=== PATIENT | female | born 2000 | race Caucasian/White ===

== ENCOUNTER 2021-01-20 19:59 | Emergency (ER) | payer OTHER, SELFPAY ==
--- NOTE | ~2021-01-20 | CT_ITS ---
EXAMINATION: CT ABDOMEN AND PELVIS WITH CONTRAST CLINICAL INFORMATION: Right lower quadrant pain. COMPARISON: 01/12/2019. TECHNIQUE: Contiguous axial thin section helical images of the abdomen and pelvis were performed following the administration of 85 mL of intravenous Omnipaque 350. The data set was reformatted in the coronal and sagittal planes and reviewed on an independent workstation. DLP: 1066 mGy-cm. FINDINGS: The visualized lung bases are clear. The visualized portions of the heart are unremarkable. The liver is of normal size and attenuation without focal lesions nor intrahepatic biliary ductal dilation. A normal gallbladder is identified. There is no wall thickening or discernible pericholecystic fluid. The spleen, pancreas, adrenal glands are unremarkable. Both kidneys are of normal size and attenuation without hydronephrosis or nephrolithiasis. Following the administration of IV contrast, prompt symmetric nephrograms are displayed. There is trace free fluid within the right lower quadrant. There is neither mesenteric nor retroperitoneal lymphadenopathy. Normal unopacified loops of small and large bowel are identified. A normal appendix is identified. Since the prior exam, the IUD has been removed. There is no pelvic free fluid. The urinary bladder is unremarkable. There is neither pelvic nor inguinal lymphadenopathy. Bone windows: Neither sclerotic nor lytic bone lesions are identified. CT/CT abdomen pelvis w con IMPRESSION: Trace free fluid within the right lower quadrant of uncertain etiology. Of note, a normal appendix is identified. Automated exposure control (Care Dose) Adjustment of the mA and/or kv according to patient size (this includes techniques or standardized protocols for targeted exams where dose is matched to indication / reason for exam; i.e. extremities or head).
--- NOTE | ~2021-01-20 | US_ITS ---
EXAMINATION: ULTRASOUND PELVIC, COMPLETE CLINICAL INFORMATION: Right lower quadrant and right pelvic pain. COMPARISON: Same day abdominal and pelvic CT. TECHNIQUE: Transabdominal and transvaginal imaging was performed. Transvaginal imaging was performed for further evaluation of the endometrium and adnexa. FINDINGS: The uterus is of normal size and echogenicity measuring 10.4 x 4.2 x 6.1 cm. A regular homogeneous endometrium is identified measuring 0.5 cm. Both ovaries are of normal size and echogenicity. The right measures 2.6 x 1.6 x 1.4 cm for a volume of 3.1 mL. The left measures 4.2 x 1.5 x 2.9 cm for a volume of 9.6 mL. This measurement includes an approximately 18 mm cyst. There is a moderate amount of pelvic free fluid. US/US transvaginal IMPRESSION: Moderate amount of pelvic free fluid. No evidence for ovarian torsion.
--- NOTE | ~2021-01-20 | US_ITS ---
EXAMINATION: ULTRASOUND PELVIC, COMPLETE CLINICAL INFORMATION: Right lower quadrant and right pelvic pain. COMPARISON: Same day abdominal and pelvic CT. TECHNIQUE: Transabdominal and transvaginal imaging was performed. Transvaginal imaging was performed for further evaluation of the endometrium and adnexa. FINDINGS: The uterus is of normal size and echogenicity measuring 10.4 x 4.2 x 6.1 cm. A regular homogeneous endometrium is identified measuring 0.5 cm. Both ovaries are of normal size and echogenicity. The right measures 2.6 x 1.6 x 1.4 cm for a volume of 3.1 mL. The left measures 4.2 x 1.5 x 2.9 cm for a volume of 9.6 mL. This measurement includes an approximately 18 mm cyst. There is a moderate amount of pelvic free fluid. US/US pelvic complete IMPRESSION: Moderate amount of pelvic free fluid. No evidence for ovarian torsion.
[2021-01-20 20:22] VITALS: BP 154/71; PULSE 79; RESP 18; TEMP 36.5; O2SAT 99; BMI 40.7
[2021-01-20 22:21] VITALS: BP 131/76; PULSE 69; RESP 16; TEMP 36.4; O2SAT 98
[2021-01-20 22:44] LABS: Glucose Urine UA NEG (NEG); Leukocyte Esterase Urine 3+ (NEG); Nitrite Urine NEG (NEG); UACC Culture Trigger YES; Urine Blood TRACE (NEG); Urine Ketones NEG (NEG); Urine Protein NEG (NEG-TRACE)
[2021-01-20 22:51] LABS: Appearance Urine CLEAR; Color Urine STRAW
[2021-01-20 22:52] LABS: UPreg QC Valid YES; Urine Pregnancy NEGATIVE (NEGATIVE)
[2021-01-20 22:57] LABS: Bacteria Urine TRACE /LPF; RBC Urine 0-2 /HPF (0); Squamous Epithelial Cell Urine TRACE /LPF
--- NOTE | 2021-01-20 23:16 | ED_ITS ---
HPI - Abdominal Pain General Chief Complaint: Abdominal Pain Stated Complaint: ABD PAIN Time Seen by Provider: 01/20/21 22:44 Source: patient Mode of arrival: ambulatory Limitations: no limitations History of Present Illness HPI narrative: Patient comes emergency room complaining of right lower quadrant pain. Patient states that she has chronic bilateral lower quadrant pain, always cramping in sensation, but this pain feels different. Patient states that she has been seen by multiple OB GYNs regarding her chronic pain/cramping. She has tried multiple control options including IUDs, NuvaRing and OCPs. Patient denies nausea vomiting or diarrhea. No fever Related Data Previous Rx's Medication Instructions Recorded ibuprofen 600 mg PO Q8H PRN #14 tab 01/21/21 Allergies Allergy/AdvReac Type Severity Reaction Status Date / Time No Known Allergies Allergy Verified 01/20/21 20:26 Review of Systems Review of Systems Constitutional : No Weight loss, No Fever, No Chills, No Night Sweats, No Fatigue, No Malaise ENT/Mouth : No Hearing loss, No Ear Pain, No Nasal Congestion, No Sinus Pain, No Hoarseness, No sore throat, No Rhinorrhea, No Swallowing Difficulty Eyes: No Eye Pain, No Swelling, No Redness, No Foreign Body, No Discharge, No Vision Changes Cardiovascular : No Chest Pain, No SOB, No Dyspnea on Exertion, No Orthopnea, No Edema, No Palpitations Respiratory : No Cough, No Sputum, No Wheezing, No Smoke Exposure, No Dyspnea Gastrointestinal : No Nausea, No Vomiting, No Diarrhea, No Constipation, complaining of right lower quadrant pain acute on chronic, chronic left lower quadrant pain. No Hematochezia, No Melena Genitourinary : no irregular bleeding, No Dysuria, No Urinary Frequency, No Hematuria, No Urinary Incontinence, No Urgency, No Flank Pain, No Urinary Flow Changes, No Hesitancy Musculoskeletal : No joint pain, No Myalgias, No Joint Swelling Skin : No Skin Lesions, No rash Neuro : No Weakness, No Numbness, No Paresthesias, No Loss of Consciousness, No Dizziness, No Headache Psych : No Anxiety/Panic, No Depression, No SI/HI/AH/VH, No Social Issues, Heme/Lymph: No Bruising, No Bleeding,No Lymphadenopathy Endocrine : No Polyuria, No Polydipsia, No Temperature Intolerance Physical Exam Vital Signs: Vital Signs: Last Vital Signs Temp 97.8 F 01/21/21 00:32 Pulse 77 01/21/21 00:32 Resp 17 01/21/21 00:32 BP 131/72 01/21/21 00:32 Pulse Ox 98 01/21/21 00:32 Body Mass Index 40.7 Appearance: Alert. Oriented X3. No acute distress. Eyes: Pupils equal, round and reactive to light. ENT: Pharynx normal. Neck: Normal inspection. Neck supple. No lymph nodes noted. No crepitus CVS: Normal heart rate and rhythm. Pulses normal. Normal S1 and S2 Respiratory: No respiratory distress. Breath sounds normal. No Wheezing. No rales Abdomen: Soft, tenderness to palpation over the right lower quadrant more than on the left lower quadrant, no guarding, no rebound, No rigidity. No distention. Skin: Skin warm and dry. Normal skin color. Normal skin turgor. Extremities: No lower extremity edema. No lower extremity edema. No Lacerations. No Rash Neuro: Oriented X 3. No motor deficit. No sensory deficit. Moving all ex termities. No slurred speech. Course Course Course Narrative: I discussed the CT and ultrasound with the patient, patient does have free fluid in the abdomen, no signs of ovarian rupture or perforation. At this time, patient is feeling better, reading a book in her room, I discussed with the patient to follow-up with OBGYN, patient would like to have a referral to [facility] I discussed with the patient that the right lower quadrant pain could be a sign of early appendicitis, at this time the ultrasound, CT scan and labs do not show any acute GB that would indicate appendicitis. However, if the pain worsens, patient instructed to return to the emergency room. MDM - Abdominal Pain Lab Data Result diagrams: 01/20/21 23:30 01/20/21 23:30 Labs: Lab Results 01/20/21 01/20/21 01/20/21 Range/Units 22:32 22:32 23:30 WBC 10.6 (4.8-10.8) X10*3/uL RBC 5.28 (4.20-5.50) X10*6/uL Hgb 13.6 (12.0-16.0) g/dl Hct 42.5 (37-47) % MCV 80.5 (80-98) fL MCH 25.8 L (27.0-33.0) pg MCHC 32.0 (31.0-35.0) g/dl RDW 13.2 (11.0-16.0) % Plt Count 358 (160-400) X10*3/uL MPV 9.7 (9.4-12.3) fL Immature Gran % (Auto) 0.2 (0.0-0.4) % Neut % (Auto) 55.2 (45-73) % Lymph % (Auto) 37.3 (20-40) % [place] % (Auto) 5.4 (2-11) % Eos % (Auto) 1.6 (0-4) % Baso % (Auto) 0.3 (0-2) % Lymph # (Auto) 4.0 (1.2-4.9) X10*3/uL [place] # (Auto) 0.6 (0.1-1.2) X10*3/uL Eos # (Auto) 0.2 (0.0-0.4) X10*3/uL Baso # (Auto) 0.0 (0.0-0.2) X10*3/uL Abs Immat Gran (auto) 0.02 (0.00-0.03) X10*3/uL Absolute Neuts (auto) 5.9 (2.0-8.3) X10*3/uL Absolute Nucleated RBC 0.000 (0.0-0.012) X10*3/uL Nucleated RBC % (auto) 0.0 (0.0-0.2) /100WBC Sodium (135-145) mmol/L Potassium (3.3-5.1) mmol/L Chloride (96-108) mmol/L Carbon Dioxide (22-29) mmol/L Anion Gap (12-20) BUN (9-16) mg/dL Creatinine (0.5-1.4) mg/dL Estim Creat Clear Calc Estimated GFR Random Glucose (60-115) mg/dL Calcium (8.4-10.2) mg/dL Total Bilirubin (0.0-1.0) mg/dL Direct Bilirubin (0.0-0.5) mg/dL AST (5-31) U/L ALT (0-31) U/L Alkaline Phosphatase (39-117) U/L Total Protein (6.5-8.0) g/dL Albumin (3.5-5.0) g/dL Urine Color STRAW Urine Appearance CLEAR Urine pH 8.0 (5.0-8.0) Ur Specific [place] 1.010 (1.005-1.025) Urine Protein NEG (NEG-TRACE) MG/DL Urine Glucose (UA) NEG (NEG) MG/DL Urine Ketones NEG (NEG) MG/DL Urine Blood TRACE (NEG) Urine Nitrite NEG (NEG) Ur Leukocyte Esterase 3+ H (NEG) Urine RBC 0-2 (0) /HPF Urine WBC 5-9 H (0-4) /HPF Ur Squamous Epith Cells TRACE /LPF Urine Bacteria TRACE /LPF Urine Test NEGATIVE (NEGATIVE) 01/20/21 Range/Units 23:30 WBC (4.8-10.8) X10*3/uL RBC (4.20-5.50) X10*6/uL Hgb (12.0-16.0) g/dl Hct (37-47) % MCV (80-98) fL MCH (27.0-33.0) pg MCHC (31.0-35.0) g/dl RDW (11.0-16.0) % Plt Count (160-400) X10*3/uL MPV (9.4-12.3) fL Immature Gran % (Auto) (0.0-0.4) % Neut % (Auto) (45-73) % Lymph % (Auto) (20-40) % [place] % (Auto) (2-11) % Eos % (Auto) (0-4) % Baso % (Auto) (0-2) % Lymph # (Auto) (1.2-4.9) X10*3/uL [place] # (Auto) (0.1-1.2) X10*3/uL Eos # (Auto) (0.0-0.4) X10*3/uL Baso # (Auto) (0.0-0.2) X10*3/uL Abs Immat Gran (auto) (0.00-0.03) X10*3/uL Absolute Neuts (auto) (2.0-8.3) X10*3/uL Absolute Nucleated RBC (0.0-0.012) X10*3/uL Nucleated RBC % (auto) (0.0-0.2) /100WBC Sodium 140 (135-145) mmol/L Potassium 4.0 (3.3-5.1) mmol/L Chloride 104 (96-108) mmol/L Carbon Dioxide 24 (22-29) mmol/L Anion Gap 16 (12-20) BUN 8 L (9-16) mg/dL Creatinine 0.65 (0.5-1.4) mg/dL Estim Creat Clear Calc 159.5 Estimated GFR > 60 Random Glucose 81 (60-115) mg/dL Calcium 9.3 (8.4-10.2) mg/dL Total Bilirubin 0.5 (0.0-1.0) mg/dL Direct Bilirubin < 0.2 (0.0-0.5) mg/dL AST 18 (5-31) U/L ALT 19 (0-31) U/L Alkaline Phosphatase 97 (39-117) U/L Total Protein 8.1 H (6.5-8.0) g/dL Albumin 4.4 (3.5-5.0) g/dL Urine Color Urine Appearance Urine pH (5.0-8.0) Ur Specific [place] (1.005-1.025) Urine Protein (NEG-TRACE) MG/DL Urine Glucose (UA) (NEG) MG/DL Urine Ketones (NEG) MG/DL Urine Blood (NEG) Urine Nitrite (NEG) Ur Leukocyte Esterase (NEG) Urine RBC (0) /HPF Urine WBC (0-4) /HPF Ur Squamous Epith Cells /LPF Urine Bacteria /LPF Urine Test (NEGATIVE) Imaging Data CT scan - abdomen: Radiologist's impression: FINDINGS: The visualized lung bases are clear. The visualized portions of the heart are unremarkable. The liver is of normal size and attenuation without focal lesions nor intrahepatic biliary ductal dilation. A normal gallbladder is identified. There is no wall thickening or discernible pericholecystic fluid. The spleen, pancreas, adrenal glands are unremarkable. Both kidneys are of normal size and attenuation without hydronephrosis or nephrolithiasis. Following the administration of IV contrast, prompt symmetric nephrograms are displayed. There is trace free fluid within the right lower quadrant. There is neither mesenteric nor retroperitoneal lymphadenopathy. Normal unopacified loops of small and large bowel are identified. A normal appendix is identified. Since the prior exam, the IUD has been removed. There is no pelvic free fluid. The urinary bladder is unremarkable. There is neither pelvic nor inguinal lymphadenopathy. Bone windows: Neither sclerotic nor lytic bone lesions are identified. CT/CT abdomen pelvis w con IMPRESSION: Trace free fluid within the right lower quadrant of uncertain etiology. Of note, a normal appendix is identified. Automated exposure control (Care Dose) Adjustment of the mA and/or kv according to patient size (this includes techniques or standardized protocols for targeted exams where dose is matched to indication / reason for exam; i.e. extremities or head). US - abdomen: Radiologist's impression: FINDINGS: The uterus is of normal size and echogenicity measuring 10.4 x 4.2 x 6.1 cm. A regular homogeneous endometrium is identified measuring 0.5 cm. Both ovaries are of normal size and echogenicity. The right measures 2.6 x 1.6 x 1.4 cm for a volume of 3.1 mL. The left measures 4.2 x 1.5 x 2.9 cm for a volume of 9.6 mL. This measurement includes an approximately 18 mm cyst. There is a moderate amount of pelvic free fluid. US/US pelvic complete IMPRESSION: Moderate amount of pelvic free fluid. No evidence for ovarian torsion. Discharge Plan Discharge Clinical Impression: Abdominal pain Qualifiers: Abdominal location: unspecified location Qualified Code(s): R10.9 - Unspecified abdominal pain Patient Disposition: Home, Self-Care Instructions: Abdominal Pain (ED) Additional Instructions: If you have any worsening pain, any symptoms, please return to the emergency room. Please follow-up with your primary care physician tomorrow. If you have any worsening or new symptoms, please return to the emergency room or call 911 Prescriptions: New ibuprofen 600 mg tablet 600 mg PO Q8H PRN (Reason: pain) Qty: 14 RF: 0 Referrals: Bari Pa MD [Physician] - 2 days [facility] Past Medical History Medical History Asthma Bipolar disorder Insomnia Social History Social History Smoking Status: Never smoker Use of substances other than those prescribed or required for medical reasons: Yes Substance Use Type: Marijuana Advance Directives: No Advance Directives Information Provided: No
[2021-01-20 23:36] LABS: MANUAL DIFF FLAG NO
[2021-01-20 23:37] LABS: Basophils Percent Auto 0.3 % (0-2); Eosinophils Absolute Auto 0.2 X10*3/uL (0.0-0.4); Eosinophils Percent Auto 1.6 % (0-4); Hematocrit 42.5 % (37-47); Hemoglobin 13.6 g/dl (12.0-16.0); Imm Gran Abs Auto 0.02 X10*3/uL (0.00-0.03); Imm Gran Pct Auto 0.2 % (0.0-0.4); Lymphocytes Percent Auto 37.3 % (20-40); Mean Corpuscular Hemoglobin 25.8 pg (27.0-33.0); Mean Corpuscular Volume 80.5 fL (80-98); Mean Platelet Volume 9.7 fL (9.4-12.3); Monocytes Absolute Auto 0.6 X10*3/uL (0.1-1.2); Monocytes Percent Auto 5.4 % (2-11); Neutrophils Absolute Auto 5.9 X10*3/uL (2.0-8.3); Neutrophils Percent Auto 55.2 % (45-73); Platelet Count 358 X10*3/uL (160-400); Red Blood Count 5.28 X10*6/uL (4.20-5.50); Red Cell Distribution Width 13.2 % (11.0-16.0); White Blood Count 10.6 X10*3/uL (4.8-10.8)
--- NOTE | 2021-01-20 23:38 | PC.NURSE ---
PT EVALED BY DR LI. IV STARTED. LABS DRAWN AND SENT. PT WAITING FOR CT SCAN AND RESULTS.
[2021-01-20 23:59] LABS: Alanine Aminotransferase 19 U/L (0-31); Albumin Level 4.4 g/dL (3.5-5.0); Alkaline Phosphatase 97 U/L (39-117); Anion Gap 16 (12-20); Aspartate Amino Transferase 18 U/L (5-31); Bilirubin Direct < 0.2 mg/dL (0.0-0.5); Bilirubin Total 0.5 mg/dL (0.0-1.0); Blood Urea Nitrogen 8 mg/dL (9-16); Calcium 9.3 mg/dL (8.4-10.2); Carbon Dioxide 24 mmol/L (22-29); Chloride 104 mmol/L (96-108); Creatinine Clr Calc Pharmacy 159.5; Estimated Glomerular Filt Rate > 60; Glucose Random 81 mg/dL (60-115); Sodium 140 mmol/L (135-145); Total Protein 8.1 g/dL (6.5-8.0)
[2021-01-21 00:32] VITALS: BP 131/72; PULSE 77; RESP 17; TEMP 36.6; O2SAT 98
--- NOTE | 2021-01-21 00:57 | PC.NURSE ---
REPORT GIVEN TO CAPRI LIN. PT HAS CALL ALDRICH IN REACH. NO DISTRESS. SITTING ON BED READING A BOOK.
== END 2021-01-21 03:56 | disposition home or self-care (01) ==
PROVIDERS: Emergency Provider Emergency Medicine; PCP Pediatrics
DX: R10.31 Right lower quadrant pain (principal); F12.90 Cannabis use, unspecified, uncomplicated; Z79.899 Other long term (current) drug therapy
CPT/HCPCS: 36415; 74177; 76830; 76856; 80048; 80076; 81001; 81003; 81025; 85025; 87086; 96360; 99284; Q9967

== ENCOUNTER 2021-11-13 16:17 | Outpatient (REF) | payer OTHER, SELFPAY ==
--- NOTE | ~2021-11-13 | CT_ITS ---
EXAMINATION: CT HEAD WITHOUT CONTRAST CLINICAL INFORMATION: Pseudotumor cerebri. COMPARISON: None TECHNIQUE: Contiguous axial imaging was performed from the skull base to vertex without intravenous administration of contrast. This CT examination was performed using dose optimization techniques as appropriate, variously including the following: Automated exposure control. Adjustment of mA and/or kV according to patient size (this includes techniques or standardized protocols for targeted exams where dose is matched to indication/reason for exam; i.e. extremities or head). Use of iterative reconstruction technique. DLP: 782 mGy-cm FINDINGS: There is no evidence of acute intracranial hemorrhage or territorial infarction. No abnormal mass effect or midline shift is seen. [place] to white matter differentiation is well preserved. No extra-axial fluid collections are identified. The ventricles are normal in size. There is no abnormal attenuation within the brain parenchyma. The osseous structures and soft tissues are normal. There is diffuse mucoperiosteal thickening of right maxillary, anterior ethmoid and minimal right maxillary sinuses. The mastoid sinuses are clear. CT/CT head/brain wo con IMPRESSION: No acute intracranial process seen. Moderate inflammatory changes right frontal, right ethmoid and minimal right maxillary sinuses.
== END 2021-11-13 16:18 | disposition home or self-care (01) ==
LOC: HO.CT 16:17
PROVIDERS: Visit Provider Psychiatry & Neurology Neurology
DX: G93.2 Benign intracranial hypertension (principal)
CPT/HCPCS: 70450

== ENCOUNTER → 2021-11-25 09:35 | Day surgery (SDC) | payer OTHER, SELFPAY ==
--- NOTE | ~2021-11-25 | FL_ITS ---
EXAMINATION: XR LUMBAR PUNCTURE CLINICAL INFORMATION: Pseudotumor cerebri. Headaches 04/10. COMPARISON: None TECHNIQUE: Following explaining fluoroscopy-guided lumbar puncture procedure, benefits and risk, a written consent was obtained. Patient was placed prone on fluoroscopy table and low back area was cleaned and draped in the usual sterile manner. 1% lidocaine was injected and left paramidline region overlying the L3-L4 disc level. A 22-gauge 6 inch needle was then advanced from the skin into the thecal sac. After observing fluid return, patient was quickly placed in the left lateral decubitus view and opening CSF pressure was obtained. Subsequently, fluid was collected in 4 test tubes. Postprocedure stylet was reintroduced and needle withdrawn. Complete hemostasis achieved at puncture site. Sterile Band-Aid applied postprocedure. Patient tolerated the procedure extremely well. FINDINGS: On several images of the lumbar spine obtained, the needle is positioned intrathecally at the L3-L4 disc level. The opening CSF pressure measured 18 cm of water. Approximately 13 mL of clear CSF fluid was collected in test tube. FLUOROSCOPY TIME: 1.0 minutes DOSE AREA PRODUCT: 9.992 uGy-m2 (microgray-meter squared) FL/FL guided lumbar puncture LP IMPRESSION: Successful fluoroscopy-guided L3-L4 lumbar puncture performed.
[2021-11-25 09:58] VITALS: BMI 42.5
[2021-11-25 10:12] LABS: MANUAL DIFF FLAG NO
[2021-11-25 10:14] LABS: Basophils Percent Auto 0.4 % (0-2); Eosinophils Absolute Auto 0.3 X10*3/uL (0.0-0.4); Hematocrit 39.1 % (37.0-47.0); Hemoglobin 12.8 g/dl (12.0-16.0); Imm Gran Abs Auto 0.02 X10*3/uL (0.00-0.03); Imm Gran Pct Auto 0.3 % (0.0-0.4); Lymphocytes Absolute Auto 2.9 X10*3/uL (1.2-4.9); Lymphocytes Percent Auto 41.2 % (20-40); Mean Corpuscular HGB Conc 32.7 g/dl (31.0-35.0); Mean Corpuscular Hemoglobin 26.8 pg (27.0-33.0); Mean Platelet Volume 9.6 fL (9.4-12.3); Monocytes Absolute Auto 0.4 X10*3/uL (0.1-1.2); Monocytes Percent Auto 5.4 % (2-11); Neutrophils Absolute Auto 3.5 x10*3/uL (2.0-8.3); Neutrophils Percent Auto 48.7 % (45-73); Platelet Count 303 X10*3/uL (160-400); Red Blood Count 4.77 X10*6/uL (4.20-5.50); Red Cell Distribution Width 12.8 % (11.0-16.0); White Blood Count 7.1 X10*3/uL (4.8-10.8)
[2021-11-25 10:19] LABS: UPreg QC Valid YES; Urine Pregnancy NEGATIVE (NEGATIVE)
[2021-11-25 10:20] LABS: INTERNATIONAL NORM RATIO 1.1 (0.9-1.1); Prothrombin Time 12.4 SEC (9.9-13.0)
[2021-11-25 10:22] LABS: Partial Thromboplastin Time 39.4 SEC (24.1-38.0)
[2021-11-25 12:25] VITALS: BP 95/64; PULSE 66; RESP 18; O2SAT 96
[2021-11-25 13:17] LABS: Glucose CSF 55 mg/dL; Total Protein CSF 25.7 mg/dL (15-45)
[2021-11-25 13:28] VITALS: BP 103/60; PULSE 72; RESP 18; O2SAT 97
[2021-11-25 13:47] LABS: CSF Appearance Clear, Colorless; CSF Tube # 2
[2021-11-25 13:57] LABS: Appearance CSF CLEAR; CSF Tube # 4; Color CSF COLORLESS; White Blood Cell CSF 2 MM*3
[2021-11-25 13:58] LABS: Lymphocytes CSF 100 %; Red Blood Cell CSF 0 MM*3
[2021-11-25 14:20] VITALS: BP 92/57; PULSE 75; RESP 18; O2SAT 100
[2021-11-25 15:09] VITALS: BP 99/51; PULSE 76; RESP 18; TEMP 36.2; O2SAT 98
== END | disposition home or self-care (01) ==
PROVIDERS: Psychiatry & Neurology Neurology; Radiology Diagnostic Radiology; Visit Provider Radiology Diagnostic Radiology
PROC: 009U3ZZ Drainage of Spinal Canal, Percutaneous Approach (ICD-10-PCS; CPT 62270; principal; 2021-11-25 11:00)
DX: G93.2 Benign intracranial hypertension (principal); R42 Dizziness and giddiness; G40.89 Other seizures; F31.9 Bipolar disorder, unspecified; F43.10 Post-traumatic stress disorder, unspecified; G47.00 Insomnia, unspecified; J45.909 Unspecified asthma, uncomplicated; Z79.899 Other long term (current) drug therapy
CPT/HCPCS: 36415; 62328; 81025; 82945; 84157; 85025; 85610; 85730; 87015; 87070; 87205; 89051

== ENCOUNTER 2022-01-29 12:59 | Emergency (ER) | payer OTHER, SELFPAY ==
[2022-01-29 13:08] VITALS: BP 119/65; PULSE 88; O2SAT 98
[2022-01-29 14:11] VITALS: BP 109/67; PULSE 81; RESP 18; TEMP 36.5; O2SAT 98; BMI 45.7
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
[2022-01-29] MEDS: Acetaminophen 325 MG TABLET 975 MG PO (16:12)
== END 2022-01-29 16:19 | disposition home or self-care (01) ==
PROVIDERS: Emergency Provider Emergency Medicine; PCP Pediatrics
DX: S00.03XA Contusion of scalp, initial encounter (principal); W22.8XXA Striking against or struck by other objects, initial encounter; Y93.89 Activity, other specified; Y92.838 Other recreation area as the place of occurrence of the external cause; Y99.9 Unspecified external cause status
CPT/HCPCS: 99283; 99284

== ENCOUNTER 2022-02-25 10:00 | Emergency (ER) | payer OTHER, SELFPAY ==
--- NOTE | ~2022-02-25 | XR_ITS ---
EXAMINATION: XR CHEST CLINICAL INFORMATION: Wheezing, shortness of breath. COMPARISON: None TECHNIQUE: Frontal view of the chest was obtained. FINDINGS: No significant abnormality is noted involving the heart, lungs, mediastinum, bony thorax or soft tissues. XR/XR chest 1V IMPRESSION: No acute cardiopulmonary process.
[2022-02-25 10:05] VITALS: BP 148/84; PULSE 88; O2SAT 95
--- NOTE | 2022-02-25 10:56 | ED_ITS ---
HPI - Asthma General Chief Complaint: Asthma Stated Complaint: ASTHMA,DIFF BREATHING,99% S/P UNDRAFT PER EMS Time Seen by Provider: 02/25/22 10:46 Source: patient, family and EMS Mode of arrival: EMS Limitations: no limitations History of Present Illness HPI Narrative: 21 y/o female with history of seasonal allergies, asthma, pseudoseizures, concussion who presents to the ER with 5 days of cough, wheezing, and SOB. She reports starting with a dry scratchy throat 5 days ago and woke up with a fever the next day. She has been having yellow phlegm and nasal congestion. She reports minimal relief with her p.r.n. albuterol inhaler and nebulizer treatments. She had a limited amount of nebulizer treatments at home so was using them sparingly. She woke up this morning and went to go use her neb but but did not have any treatments left so she called 911 because she felt very short of breath. She reports improvements since being given an updraft by EMS. She reports taking to COVID test at home that were negative. She has had all 3 vaccinations and she is vaccinated for the flu as well. MD complaint: asthma attack and shortness of breath Onset (ago): day(s) (5) Severity: moderate Context: recent URI Associated symptoms: productive cough and fever Asthma History: childhood onset Treatments Prior to Arrival: inhaled bronchodilator Related Data Current Asthma Therapy: inhaled bronchodilator Previous Rx's Medication Instructions Recorded ibuprofen 600 mg tablet 600 mg PO Q8H PRN #14 tab 01/21/21 ibuprofen 600 mg tablet 600 mg PO Q6H PRN #14 tab 01/29/22 albuterol sulfate 0.63 mg/3 mL 0.63 mg (3 mL) INHALATION QID PRN 02/25/22 solution for nebulization #75 ml azithromycin 250 mg tablet See Rx Instructions .ROUTE 02/25/22 (Zithromax Z-Chriss) .COMPLEX #6 tab hydrocodone-homatropine 5 mg-1.5 5 ml PO Q6H PRN #60 ml 02/25/22 mg/5 mL (5 mL) oral syrup (Hycodan) prednisone 20 mg tablet 40 mg PO DAILY #10 tab 02/25/22 Allergies Allergy/AdvReac Type Severity Reaction Status Date / Time No Known Allergies Allergy Verified 01/29/22 14:10 Review of Systems Review of Systems: Constitutional: + Fever, No Chills ENT/Mouth: No sore throat, No Rhinorrhea, No Swallowing Difficulty Eyes: No Eye Pain, No Swelling, No Redness Cardiovascular: No Chest Pain, + SOB, No Orthopnea, No Edema Respiratory: + Cough, + Sputum, + Wheezing, + dyspnea Gastrointestinal: No Nausea, No Vomiting, No Diarrhea, No abdominal Pain Genitourinary: No Dysuria, No Urinary Frequency, No Hematuria Musculoskeletal: No joint pain, No Myalgias Skin: No Skin Lesions, No rash Neuro: No Weakness, No Numbness, No Dizziness, + Headache Psych: No Anxiety/Panic, No Depression Heme/Lymph: No Bruising, No Lymphadenopathy Endocrine: No Polyuria, No Polydipsia [facility] Past Medical History Medical History (Updated 02/25/22 @ 13:36 by KEVAN Pinzon) Asthma Bipolar disorder Eating disorder Insomnia Social History Social History Substance Use Type: Marijuana Advance Directives: No Advance Directives Information Provided: No Patient : No Physical Exam Vital Signs: Vital Signs: Last Vital Signs Temp 98.9 F 02/25/22 11:30 Pulse 85 02/25/22 12:53 Resp 12 02/25/22 12:53 BP 136/66 02/25/22 12:53 Pulse Ox 94 02/25/22 12:53 BMI result Body Mass Index 42.5 Appearance: Alert. Oriented X3. No acute distress. Eyes: Pupils equal, round and reactive to light. ENT: Pharynx normal. Neck: Normal inspection. Neck supple. CVS: Normal heart rate and rhythm. Pulses normal. Respiratory: No respiratory distress. Coarse throughout with end expiratory wheezes throughout. Abdomen: Soft and nontender. +BS x4 Skin: Skin warm and dry. Normal skin color. Normal skin turgor. No rashes. Extremities: No lower extremity edema. No calf tenderness. Neuro: Oriented X 3. No motor deficit. No sensory deficit. Course Course Course Narrative: 21-year-old female with history of asthma, seasonal allergies, pseudoseizures, recent concussion who presents to the ER with 5 days of URI symptoms and wheezing. SpO2 for EMS was 99% after updraft. SpO2 here is 95% with coarse lung sounds and end-expiratory wheezes on examination. She is in no complete sentences. Will get chest x-ray, COVID swab, influenza swab. Will give an hour long nebulizer treatment and prednisone. Will reassess. Reevaluation(s) Reevaluation #1: Wheezing improved but remains coarse. Not hypoxic or in respiratory distress. CXR reviewed and no lobar PNA. She is negative for COVID-19 and influenza. At this time she is stable for discharge home with plan to refill her albuterol nebs, advised to take Q 4 while ill. Will send home with 5 days of prednisone as well, antitussive, Z-Chriss. She will follow-up with her primary care doctor or come back to the ER if symptoms worsen. Stable for DC. MDM - Asthma Lab Data Labs: Lab Results 02/25/22 02/25/22 Range/Units 12:55 12:55 COVID-19 (HARPREET) Negative (Negative) COVID-19 Clin Com See Note Influenza Type A (APURVA) Negative (Negative) Influenza Type B (APURVA) Negative (Negative) Influenza A & B Note See Note Critical Care Time Critical Care Time Critical Care Time: Yes Total Critical Care Time: 35 Attestation: I have personally provided critical care time exclusive of time spent on separately billable procedures. Time includes review of lab data, radiology results, frequent bedside reassessments, and monitoring for potential decompensation. Intervention performed as documented. Discharge Plan Discharge Clinical Impression: Asthma with acute exacerbation, Acute viral syndrome Patient Disposition: Home, Self-Care Instructions: Asthma (DC), Viral Syndrome (ED) Additional Instructions: You are negative for COVID and Influenza Take the prescribed medications as directed Start the prednisone tomorrow, you were given the 1st dose today in the ER Rest. Drink plenty of fluids. If you develop new or worsening symptoms call 911 or come back to the ER for further evaluation. Prescriptions: New prednisone 20 mg tablet 40 mg PO DAILY Qty: 10 0RF azithromycin [Zithromax Z-Chriss] 250 mg tablet See Rx Instructions .ROUTE .COMPLEX Qty: 6 0RF Rx Instructions: take 500 mg today (day 1), then 250 mg for 4 days (days 2-5) hydrocodone-homatropine [Hycodan] 5-1.5 mg/5 mL (5 mL) syrup 5 ml PO Q6H PRN (Reason: cough) Qty: 60 0RF albuterol sulfate 0.63 mg/3 mL solution for nebulization 0.63 mg inhalation QID PRN (Reason: shortness of breath or wheezing) Qty: 75 0RF No Action ibuprofen 600 mg tablet 600 mg PO Q8H PRN (Reason: pain) Qty: 14 0RF ibuprofen 600 mg tablet 600 mg PO Q6H PRN (Reason: pain) Qty: 14 0RF Stand Alone Forms: Work/School Release
[2022-02-25 11:17] VITALS: PULSE 74; RESP 20; O2SAT 96
[2022-02-25] MEDS: Albuterol Sulfate (0.083%) 2.5 MG/3 ML VIAL.NEB 10 MG INHALE (11:17)
[2022-02-25 11:30] VITALS: BP 123/69; PULSE 75; RESP 20; TEMP 37.2; O2SAT 94; BMI 42.5
[2022-02-25] MEDS: predniSONE 20 MG TABLET 60 MG PO (11:42)
[2022-02-25 12:53] VITALS: BP 136/66; PULSE 85; RESP 12; O2SAT 94
--- NOTE | 2022-02-25 13:01 | PC.NURSE ---
Patient is alert and oriented x3, ther mother is at bedside. Patient reports pain in b/l chest from coughing-05/10 at present. Tylenol offered to patient for pain management-patient declined/ O2 Sat 92-93on RA-patient reports mild dyspnea-supplemental O2 applied at 1 LPM-O2 Sat 95%-patient reports dyspnea resolved. Provider updated.
[2022-02-25 13:27] LABS: IDNOW Serial# 16C4AD1C; Influenza A Negative (Negative); Influenza B2 Negative (Negative)
[2022-02-25 13:29] LABS: COVID-19 Test Negative (Negative)
== END 2022-02-25 13:52 | disposition home or self-care (01) ==
PROVIDERS: Physician Assistant; Emergency Provider Emergency Medicine
DX: J45.901 Unspecified asthma with (acute) exacerbation (principal); B34.9 Viral infection, unspecified; Z20.822 Contact with and (suspected) exposure to COVID-19
CPT/HCPCS: 71045; 87502; 87635; 94640; 94644; 99284; 99291

== ENCOUNTER 2022-02-25 17:47 | Emergency (ER) | payer OTHER, SELFPAY ==
[2022-02-25 18:04] VITALS: BP 130/86; BP 147/81; PULSE 85; PULSE 95; RESP 18; TEMP 36.8; O2SAT 95; BMI 43.4
== END 2022-02-25 20:45 | disposition left against medical advice (07) ==
PROVIDERS: Emergency Provider Emergency Medicine; PCP Pediatrics
DX: R55 Syncope and collapse (principal)
CPT/HCPCS: 99281; 99282

== ENCOUNTER 2022-08-30 20:22 | Emergency (ER) | payer OTHER, SELFPAY ==
[2022-08-30 21:06] VITALS: BP 122/70; BP 143/79; PULSE 78; PULSE 80; RESP 18; TEMP 37.1; O2SAT 99; BMI 38.9
[2022-08-30 21:55] VITALS: BP 133/97; PULSE 83; RESP 20; TEMP 36.7; O2SAT 100
--- NOTE | 2022-08-30 21:56 | PC.NURSE ---
Pt called for RN in the waiting room because she felt like she was about to have seizure. Pt then exhibited seizure like activity while this RN was rechecking vitals. Pt able to follow directions to stand and pivot to wheelchair immediately after seizure activity. Pt then reported in triage that she did not remember how or why she came to the hospital.
--- NOTE | 2022-08-30 22:02 | PC.NURSE ---
Pt is currently in triage; reassessing vitals, drawing labs, and consulting with charge nurse for plan with the pt.
[2022-08-30 22:14] LABS: MANUAL DIFF FLAG NO
[2022-08-30 22:15] LABS: Basophils Percent Auto 0.3 % (0-2); Eosinophils Absolute Auto 0.2 X10*3/uL (0.0-0.4); Eosinophils Percent Auto 2.1 % (0-4); Hemoglobin 13.8 g/dl (12.0-16.0); Imm Gran Abs Auto 0.02 X10*3/uL (0.00-0.03); Imm Gran Pct Auto 0.2 % (0.0-0.4); Lymphocytes Absolute Auto 3.3 X10*3/uL (1.2-4.9); Lymphocytes Percent Auto 32.3 % (20-40); Mean Corpuscular HGB Conc 32.9 g/dl (31.0-35.0); Mean Corpuscular Hemoglobin 26.1 pg (27.0-33.0); Mean Corpuscular Volume 79.5 fL (80.0-98.0); Mean Platelet Volume 9.4 fL (9.4-12.3); Monocytes Absolute Auto 0.8 X10*3/uL (0.1-1.2); Monocytes Percent Auto 7.5 % (2-11); Neutrophils Absolute Auto 5.8 x10*3/uL (2.0-8.3); Neutrophils Percent Auto 57.6 % (45-73); Platelet Count 345 X10*3/uL (160-400); Red Blood Count 5.28 X10*6/uL (4.20-5.50); Red Cell Distribution Width 13.2 % (11.0-16.0); White Blood Count 10.1 X10*3/uL (4.8-10.8)
[2022-08-30 22:34] LABS: Alanine Aminotransferase 14 U/L (0-31); Albumin Level 4.7 g/dL (3.5-5.0); Alkaline Phosphatase 106 U/L (39-117); Anion Gap 17 (12-20); Aspartate Amino Transferase 14 U/L (5-31); Bilirubin Direct < 0.2 mg/dL (0.0-0.5); Bilirubin Total 0.3 mg/dL (0.0-1.0); Blood Urea Nitrogen 7 mg/dL (9-16); Calcium 9.4 mg/dL (8.4-10.2); Carbon Dioxide 22 mmol/L (22-29); Chloride 104 mmol/L (96-108); Estimated Glomerular Filt Rate > 60; Glucose Random 97 mg/dL (60-115); Lipase 62 U/L (8-78); Potassium 3.8 mmol/L (3.3-5.1); Sodium 139 mmol/L (135-145); Total Protein 8.2 g/dL (6.5-8.0)
--- NOTE | 2022-08-31 00:20 | PC.NURSE ---
Pt complaining of nausea. Has not vomited since this morning.
--- NOTE | 2022-08-31 00:24 | PC.NURSE ---
Pt now reported that she feels less nauseous, but she has not eaten today so that could be why her stomach is bothering her. Pt given fredrick lynne and saltines at this time. Jailene held.
--- NOTE | 2022-08-31 04:26 | ED_ITS ---
HPI - General Adult General Chief complaint: Nausea/Vomiting/Diarrhea Stated complaint: dizziness Time Seen by Provider: 08/31/22 03:22 Source: patient Mode of arrival: ambulatory Limitations: no limitations History of Present Illness HPI narrative: 22-year-old female who presents emergency department for evaluation of nasal congestion and sinus pain x3 days. She is currently complaining of a congested stuffy nose. She states she is having sharp pressure-like pain and she points to her frontal sinuses and to her nasal bridge when asked to localize this discomfort. The pain is a constant pain which is 8/10. She has also had rhinorrhea. She denied fever or chills. She denied cough, chest pain shortness of breath or dyspnea on exertion . She states that she has been taking DayQuil with no relief for symptoms. The patient states Related Data Previous Rx's Medication Instructions Recorded ibuprofen 600 mg tablet 600 mg PO Q8H PRN pain #14 tabs 01/21/21 ibuprofen 600 mg tablet 600 mg PO Q6H PRN pain #14 tabs 01/29/22 albuterol sulfate 0.63 mg/3 mL 0.63 mg (3 mL) inhalation QID PRN 02/25/22 solution for nebulization shortness of breath or wheezing #75 mL azithromycin 250 mg tablet See Rx Instructions PO .COMPLEX #6 02/25/22 (Zithromax Z-Chriss) tabs hydrocodone-homatropine 5 mg-1.5 5 ml PO Q6H PRN cough #60 mL 02/25/22 mg/5 mL (5 mL) oral syrup (Hycodan) prednisone 20 mg tablet 40 mg PO DAILY #10 tabs 02/25/22 fluticasone propionate 50 2 spray intranasal DAILY #16 grams 08/31/22 mcg/actuation nasal spray,suspension (Flonase Allergy Relief) Allergies Allergy/AdvReac Type Severity Reaction Status Date / Time No Known Allergies Allergy Verified 01/29/22 14:10 [facility] Past Medical History Medical History (Updated 08/31/22 @ 04:31 by Damion Silver MD) Asthma Bipolar disorder Eating disorder Insomnia Social History Social History Substance Use Type: Marijuana Advance Directives: No Physical Exam ED Vital Signs: Vital Signs - 24 hr 08/30/22 21:06 08/30/22 21:55 Temperature 98.7 F 98.1 F Pulse Rate 78 83 Respiratory Rate 18 20 Blood Pressure 143/79 H 133/97 H Pulse Oximetry 99 100 Oxygen Delivery Method Room Air Room Air BMI result Body Mass Index 38.9 Medical Decision Making Lab Data Result diagrams: 08/30/22 22:09 08/30/22 22:09 Labs: Lab Results 08/30/22 08/30/22 Range/Units 22:09 22:09 WBC 10.1 (4.8-10.8) X10*3/uL RBC 5.28 (4.20-5.50) X10*6/uL Hgb 13.8 (12.0-16.0) g/dl Hct 42.0 (37.0-47.0) % MCV 79.5 L (80.0-98.0) fL MCH 26.1 L (27.0-33.0) pg MCHC 32.9 (31.0-35.0) g/dl RDW 13.2 (11.0-16.0) % Plt Count 345 (160-400) X10*3/uL MPV 9.4 (9.4-12.3) fL Immature Gran % (Auto) 0.2 (0.0-0.4) % Neut % (Auto) 57.6 (45-73) % Lymph % (Auto) 32.3 (20-40) % [place] % (Auto) 7.5 (2-11) % Eos % (Auto) 2.1 (0-4) % Baso % (Auto) 0.3 (0-2) % Lymph # (Auto) 3.3 (1.2-4.9) X10*3/uL [place] # (Auto) 0.8 (0.1-1.2) X10*3/uL Eos # (Auto) 0.2 (0.0-0.4) X10*3/uL Baso # (Auto) 0.0 (0.0-0.2) X10*3/uL Abs Immat Gran (auto) 0.02 (0.00-0.03) X10*3/uL Absolute Neuts (auto) 5.8 (2.0-8.3) x10*3/uL Absolute Nucleated RBC 0.000 (0.0-0.012) X10*3/uL Nucleated RBC % (auto) 0.0 (0.0-0.2) /100WBC Sodium 139 (135-145) mmol/L Potassium 3.8 (3.3-5.1) mmol/L Chloride 104 (96-108) mmol/L Carbon Dioxide 22 (22-29) mmol/L Anion Gap 17 (12-20) BUN 7 L (9-16) mg/dL Creatinine 0.70 (0.5-1.4) mg/dL Estim Creat Clear Calc 142.0 Estimated GFR > 60 Random Glucose 97 (60-115) mg/dL Calcium 9.4 (8.4-10.2) mg/dL Total Bilirubin 0.3 (0.0-1.0) mg/dL Direct Bilirubin < 0.2 (0.0-0.5) mg/dL AST 14 (5-31) U/L ALT 14 (0-31) U/L Alkaline Phosphatase 106 (39-117) U/L Total Protein 8.2 H (6.5-8.0) g/dL Albumin 4.7 (3.5-5.0) g/dL Lipase 62 (8-78) U/L Discharge Plan Discharge Clinical Impression: Acute frontal sinusitis Patient Disposition: Home, Self-Care Additional Instructions: Stop the DayQuil Take ibuprofen 200 mg pills, 3 pills every 6 hours as needed for pain. Take Tylenol (acetaminophen) 500 mg pills, 2 pills every 4 to 6 hours as needed for pain. Use Flonase nasal inhaler, 2 inhalations in each nostril once a day for 1-2 weeks. Follow-up with your doctor in 2 days. Please return to the emergency department if your symptoms get worse or if you develop any symptoms that are concerning to you. Prescriptions: New fluticasone propionate [Flonase Allergy Relief] 50 mcg/actuation spray,suspension 2 spray intranasal DAILY Qty: 16 0RF Rx Instructions: administer into each nostril No Action ibuprofen 600 mg tablet 600 mg PO Q8H PRN (Reason: pain) Qty: 14 0RF ibuprofen 600 mg tablet 600 mg PO Q6H PRN (Reason: pain) Qty: 14 0RF prednisone 20 mg tablet 40 mg PO DAILY Qty: 10 0RF azithromycin [Zithromax Z-Chriss] 250 mg tablet See Rx Instructions .ROUTE .COMPLEX Qty: 6 0RF Rx Instructions: take 500 mg today (day 1), then 250 mg for 4 days (days 2-5) hydrocodone-homatropine [Hycodan] 5-1.5 mg/5 mL (5 mL) syrup 5 ml PO Q6H PRN (Reason: cough) Qty: 60 0RF albuterol sulfate 0.63 mg/3 mL solution for nebulization 0.63 mg inhalation QID PRN (Reason: shortness of breath or wheezing) Qty: 75 0RF
== END 2022-08-31 04:56 | disposition home or self-care (01) ==
PROVIDERS: Emergency Provider Emergency Medicine Emergency Medical Services
DX: J01.10 Acute frontal sinusitis, unspecified (principal); R42 Dizziness and giddiness; Z79.899 Other long term (current) drug therapy
CPT/HCPCS: 36415; 80048; 80076; 83690; 85025; 99282; 99283

== ENCOUNTER 2024-04-05 07:22 | Outpatient (AMB) | payer OTHER, SELFPAY ==
[2024-04-05 07:41] VITALS: BP 118/72; BMI 43.4
--- NOTE | 2024-04-05 07:41 | MHC.PC.OV ---
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 Range Manager Required: No Accompanied by: Self / Same As Patient Allergies No Known Allergies Allergy (Verified 04/05/24 07:59) Medication List - Last Reconciled 04/05/24 by Krissy Smith MD albuterol sulfate 0.63 mg (3 mL) inhalation QID PRN albuterol sulfate 90 mcg/actuation inhalation buspirone mg PO clonidine HCl 0.3 mg PO DAILY dexmethylphenidate ER 10 mg PO QAM Tobacco use date assessed: 04/05/24 Dental Screening Dental Screen Date: 04/05/24 Did you have a dental visit in the last 12 months?: No Did you have a dental problem in the last 6 months where you did not have access to dental care?: No Was dental information given to patient?: Patient has dentist HPI HPI Comments History of Present Illness Details This is a 23-year-old female with morbid obesity that comes for her physical exam. She is morbidly obese with a BMI of 43.4 and declines weight loss surgery or what goal via as of now. Has never a Pap smear but will let me know to what OBGYN she wants to goal. She follow with psychiatrist for her ADHD and they are trying to get a consult for neuropsych to rule out autistic spectrum disorder. Has fibromyalgia follow by Web Site Manager Dr. Finn. Has pseudoseizures for viral by neurologist Dr. Nielsen. Complains of palpitations and has had irregular heart rate in the past and wants a Layout Artist which was also recommended by Neurology and Rheumatology. [facility] Medical History (Updated 04/05/24 @ 08:23 by Krissy Smith MD) Seizures Eating disorder Asthma Insomnia Surgical History History of wisdom tooth extraction Family History Mother Heart problem Diabetes Mental health disorder Father Diabetes Mental health disorder Family/Other Substance use disorder Social History Housing: Apartment Alcohol intake: never Patient Tobacco Use Status: Never used Tobacco e-Cigarette/Vaping Use: Never Used Second Hand Smoke Exposure: No Substance Use Type: Marijuana service: No Current occupational status: employed Current occupational exposures/hazards: No Cognitive needs: No Hearing needs: No Vision needs: Yes Questionnaire PHQ-9 Over the last 2 weeks, how often have you been bothered by any of the following problems? 1. Little interest or pleasure in doing things: not at all 2. Feeling down, depressed, or hopeless: not at all 3. Trouble falling or staying asleep, or sleeping too much: not at all 4. Feeling tired or having little energy: not at all 5. Poor appetite or overeating: not at all 6. Feeling bad about yourself - or that you are a failure or have let yourself or your family down: not at all 7. Trouble concentrating on things, such as reading the newspaper or watching television: not at all 8. Moving or speaking so slowly that other people could have noticed. Or the opposite - being so fidgety or restless that you have been moving around a lot more than usual: not at all 9. Thoughts that you would be better off or of hurting yourself in some way: not at all Total score: 0 Depression Screening Interpretation: Negative Depression Screening Done: Yes 85019 - PHQ-9 Billing: Yes Source: Developed by Drs. Bernard Madden, Aruna Torre, Rickey Claros and colleagues, with an educational nay from [employer]. Thrive Questionnaire Date Thrive assessed: 04/05/24 I am a: Patient What is your living situation today?: I have a steady place to live Within the past 12 months, did the food you bought not last and you didn't have the money to get more?: Never true Within the past 12 months, did you worry whether your food would run out before you got money to buy more?: Never true Do you have trouble paying for medicines?: No Do you have trouble getting transportation to medical appointments?: No Do you have trouble paying your heating and electricity bill?: No Do you have trouble taking care of your child, family member or friend?: No Do you have trouble with day-to-day activities such as bathing, preparing meals, shopping, managing finances, etc.?: No Are you currently unemployed and looking for a job?: No Are you interested in more education?: No Please select the resources that you would like help with: None Currently or been in a relationship where the following occur: no concerns reported THRIVE Score: 0 AUDIT C Alcohol Use Questionnaire (AUDIT-C) 1. How often do you have a drink containing alcohol?: Never Total Score: 0 Score Reviewed/Action Taken: No SHANNON-7 AMB Questionnaire SHANNON-7 Date SHANNON - 7 assessed: 04/05/24 Feeling nervous, anxious, or on edge: 3 = Nearly every day Not being able to stop or control worryin = Several days Worrying too much about different things: 2 = More than half the days Trouble relaxin = Several days Being so restless that it is hard to sit still: 2 = More than half the days Becoming easily annoyed or irritable: 1 = Several days Feeling afraid as if something awful might happen: 1 = Several days Total SHANNON-7 score (0-4 normal; 5-9 mild; 10-14 moderate; 15-21 severe): 11 Source: Developed by Drs. Bernard Madden, Aruna Torre, Rickey Claros and colleagues, with an educational nay from [employer]. SHANNON-7 Assessment Billing SHANNON-7 Assessment Tool: SHANNON-7 Assessment 87575 Review of Systems Const All systems reviewed & are unremarkable except as noted in HPI and below Eyes Reports no additional complaints, Denies change in vision and Denies other visual disturbances Card Denies chest pain at rest, Denies chest pain with activity, Reports rapid heart rate, Denies edema, Reports irregular heart rhythm, Denies claudication, Denies dyspnea, Denies dyspnea on exertion, Denies orthopnea, Denies paroxysmal nocturnal dyspnea and Denies slow heart rate Resp Denies cough, Denies dyspnea and Denies dyspnea on exertion Physical exam (Primary Care) Vital Signs: Last Vital Signs BP 118/72 04/05/24 07:41 BMI result Body Mass Index 43.4 BMI Assessment/Plan discussion: High BMI High, discussed plan: lifestyle, weight reduction, dietary and physical activity Tobacco/Smoking Status: Tobacco use Status Tobacco use date assessed 04/05/24 04/05/24 07:52 Patient Tobacco Use Status Never used Tobacco 04/05/24 07:52 e-Cigarette/Vaping Use Never Used 04/05/24 07:52 PHQ-9: PHQ-9 Score PHQ-9: Total score 0 04/05/24 08:08 Depression Screening Interpretation: Negative Thrive Assessment: Date of Thrive Assessment Date Thrive assessed 04/05/24 04/05/24 07:52 Currently or been in a relationship where the following occur: no concerns reported Const Orientation/consciousness: patient oriented x3 HENMT Head: Yes normal to inspection, Yes normocephalic and Yes atraumatic Ears: external ears normal Eyes General: appearance normal, both eyes and all related structures Eyelids: Yes eyelids normal Conjunctivae: conjunctivae normal Neck Neck: Yes normal visual inspection and Yes supple Resp Effort & Inspection: normal respiratory effort Auscultation: clear to auscultation bilaterally Cardio Jugular venous distension: no JVD Rate: regular rate Rhythm: regular rhythm Heart sounds: S1 normal heart sound present and S2 normal heart sound present GI Inspection: Yes normal to inspection Palpation (GI): Soft to palpation and nontender Auscultation: normal bowel sounds Skin General skin exam: no rashes or lesions noted Neuro General: patient oriented x3 and no focal motor deficits Extrem General: Yes full ROM Psych Appearance: grossly normal Immunizations Boostrix Tdap 2.5 Lf unit-8 mcg-5 Lf/0.5 mL intramuscular syringe Performing Provider: Krissy Smith MD Performing Location: [facility] Administered by: COLIN Nuñez on 04/05/24 08:25 Dose Route Admin Location Dispensed Lot Number Expiration Date MAC Chief Environmental Commitment Officer 0.5 mL IM Right Deltoid 0.5 mL [id number] 06/08/26 [id number] [employer] VIS Given Date VIS Provided VIS Publication Date 04/05/24 Single Vaccine 21 Eligibility Eligibility Date Funding Source Not [facility] Eligible 04/05/24 Private Assessment and Plan Assessment & Plan (1) Physical exam: Code(s): Z00.00 - Encounter for general adult medical examination without abnormal findings Plan: Repeat in a year. (2) Morbid obesity: Code(s): E66.01 - Morbid (severe) obesity due to excess calories Plan: Continue diet and exercise. BMI goal is less than 30. Orders: Orders Complete Blood Count Auto Diff Today E66.01 - Morbid (severe) obesity due to excess calories Lipid Panel Today Z00.00 - Encounter for general adult medical examination without abnormal findings Comprehensive [place]. Panel Fast Today Z00.00 - Encounter for general adult medical examination without abnormal findings ECG 12 lead EKG Today R00.2 - Palpitations Thyroid Stimulating Hormone Today E66.01 - Morbid (severe) obesity due to excess calories TDaP Immunization Today Z23 - Encounter for immunization Referrals Cardiology Referral I49.9 - Cardiac arrhythmia, unspecified, R00.2 - Palpitations Medications: Discontinued ibuprofen Discontinued Reason: Patient Completed Course 600 mg PO Q8H PRN 14 tabs 0RF pain ibuprofen Discontinued Reason: Patient Completed Course 600 mg PO Q6H PRN 14 tabs 0RF pain fluticasone propionate 50 mcg/actuation (Flonase Allergy Relief) administer into each nostril Discontinued Reason: Patient no longer taking 2 sprays intranasal DAILY 16 grams 0RF azithromycin (Zithromax Z-Chriss) Discontinued Reason: Patient Completed Course take 500 mg today (day 1), then 250 mg for 4 days (days 2-5) 6 tabs 0RF hydrocodone-homatropine 5-1.5 mg/5 mL (5 mL) (Hycodan) Discontinued Reason: Patient Completed Course 5 mL PO Q6H PRN 60 mL 0RF cough prednisone Discontinued Reason: Patient Completed Course 40 mg (2 x 20 mg) PO DAILY 10 tabs 0RF Coding Level of Care Code New Pt Prev Care 18-39yr(45048 Diagnoses Physical exam Z00.00 Morbid obesity E66.01 Additional Codes SHANNON-7 Assessment Billing - SHANNON-7 Assessment Tool: SHANNON-7 Assessment 82501 ([id number]) Time Spent (min) 40
== END 2024-04-05 08:25 | disposition home or self-care (01) ==
PROVIDERS: PCP Internal Medicine; Visit Provider Internal Medicine
DX: Z00.00 Encounter for general adult medical examination without abnormal findings (principal); E66.01 Morbid (severe) obesity due to excess calories; Z68.41 Body mass index [BMI] 40.0-44.9, adult; Z23 Encounter for immunization
CPT/HCPCS: 90471; 90715; 99385

== ENCOUNTER 2024-05-25 09:04 | Emergency (ER) | payer OTHER, SELFPAY ==
--- NOTE | ~2024-05-25 | XR_ITS ---
EXAMINATION: XR CHEST 2 VIEW CLINICAL INFORMATION: Chest pain and shortness of breath COMPARISON: 02/25/2022 TECHNIQUE: PA and lateral views of the chest obtained. FINDINGS: The lungs are clear. There are no pleural effusions. The cardiomediastinal silhouette is normal. XR/XR chest 2V IMPRESSION: No active cardiopulmonary disease.
[2024-05-25 09:14] VITALS: BP 102/70; BP 104/61; PULSE 66; PULSE 90; RESP 18; TEMP 36.6; O2SAT 99; BMI 43.0
--- NOTE | 2024-05-25 09:40 | ECG_ITS ---
Test Reason : CP Blood Pressure : / mmHG Vent. Rate : 085 BPM Atrial Rate : 085 BPM P-R Int : 122 ms QRS Dur : 086 ms QT Int : 386 ms P-R-T Axes : -10 033 015 degrees QTc Int : 459 ms Normal sinus rhythm with sinus arrhythmia Normal ECG When compared with ECG of 01-APR-2020 19:09, No significant change was found Referred By: Michelle Carranza Electronically Signed By:NATALYA MELGAR
--- OUTSIDE RECORDS SUMMARY | 2024-05-25 09:46 | XMS_ITS | Continuity of Care Document ---
Author Organization [facility] Address [address] [place] [id number]- Care Team Providers Care Postdoctoral Research Associate Name Role Phone Gunnar LOPEZ, Alfredo Villareal Primary Care Physician En[place] [facility] Date(s): 09/04/21 - 10/04/21 [facility] [address] [place] [id number]- Attending Physician: Neil Ruvalcaba Admitting Physician: Neil Ruvalcaba Referring Physician: Neil Ruvalcaba Allergies, Adverse Reactions, Alerts Substance Reaction Severity Status NKA Active Immunizations Given and Recorded Vaccine Date Status Refusal Reason SARS-CoV-2 (COVID-19) mRNA BNT-162b2 vac 02/26/21 Given SARS-CoV-2 (COVID-19) mRNA BNT-162b2 vac 02/05/21 Given Problem List Condition Effective Dates Status Health Status Inform ant Obesity(Confirmed) Active Subclinical hyperthyroidism(Confirmed) Active
--- OUTSIDE RECORDS SUMMARY | 2024-05-25 09:46 | XMS_ITS | Continuity of Care Document ---
Author Organization [facility] Address [address] [place] [id number]- Care Team Providers Care Mold Burner Name Role Phone Alfredo Maher MD Primary Care Physician Encounter [facility] [place] [facility] [id number] Date(s): 09/01/21 - 10/04/21 [facility] [address] [place] [id number]- Attending Physician: Mary Parker DO Admitting Physician: Mary Parker DO Referring Physician: Alfredo Maher MD Allergies, Adverse Reactions, Alerts Substance Reaction Severity Status NKA Active Immunizations Given and Recorded Vaccine Date Status Refusal Reason SARS-CoV-2 (COVID-19) mRNA BNT-162b2 vac 02/26/21 Given SARS-CoV-2 (COVID-19) mRNA BNT-162b2 vac 02/05/21 Given Problem List Condition Effective Dates Status Health Status Inform ant Obesity(Confirmed) Active Subclinical hyperthyroidism(Confirmed) Active
--- NOTE | 2024-05-25 09:47 | ED.ASTHMA ---
HPI - Asthma General Chief Complaint: Asthma Stated Complaint: SOB Asthma attack Time Seen by Provider: 05/25/24 09:29 Source: patient and EMS Mode of arrival: EMS Limitations: no limitations History of Present Illness ED Provider: Traci Carranza PA-C HPI Narrative: 24 yo female with history of asthma, fibromyalgia, anxiety, gluten-sensitive enteropathy, obesity, ADHD who presents to the ER from home for evaluation of SOB, dizziness and chest pain. She reports she has been coughing and having some asthma symptoms the last 3 days after traveling to [place]. She attributed her symptoms to changes in climate which tend to trigger her asthma. She has been using her rescue inhaler with some relief. She is coughing up clear phlegm. No fevers Today patient reports she developed worsening SOB with a coughing fit and she couldn't breathe. She was hyperventilating trying to catch her breath. She became dizzy and MD complaint: asthma attack and shortness of breath Onset (ago): day(s) Severity: worse than usual Context: recent URI Associated symptoms: productive cough Asthma History: childhood onset Treatments Prior to Arrival: inhaled bronchodilator Related Data Current Asthma Therapy: inhaled bronchodilator Home Medications ?Medication ?Instructions ?Recorded ?Confirmed albuterol sulfate 90 mcg/actuation inhalation 04/05/24 04/05/24 aerosol inhaler buspirone 10 mg tablet mg PO 04/05/24 04/05/24 clonidine HCl 0.3 mg tablet 0.3 mg PO DAILY 04/05/24 04/05/24 dexmethylphenidate 10 mg 10 mg PO QAM 04/05/24 04/05/24 capsule,extended release [id number] Previous Rx's ?Medication ?Instructions ?Recorded albuterol sulfate 0.63 mg/3 mL 0.63 mg (3 mL) inhalation QID PRN 02/25/22 solution for nebulization shortness of breath or wheezing #75 mL albuterol sulfate 0.63 mg/3 mL 0.63 mg (3 mL) inhalation Q4-6H 05/25/24 solution for nebulization PRN shortness of breath or wheezing #75 mL prednisone 20 mg tablet 40 mg (2 x 20 mg) PO DAILY #10 tabs 05/25/24 Allergies Allergy/AdvReac Type Severity Reaction Status Date / Time No Known Allergies Allergy Verified 05/25/24 09:17 Review of Systems Review of Systems: Yes all other systems are reviewed and are negative [facility] Past Medical History Medical History (Updated 05/25/24 @ 11:45 by KEVAN Pinzon) Seizures Eating disorder Asthma Insomnia Surgical History History of wisdom tooth extraction Family History Family History Mother Heart problem Diabetes Mental health disorder Father Diabetes Mental health disorder Family/Other Substance use disorder Social History Social History Housing: Apartment Alcohol intake: never Patient Tobacco Use Status: Never used Tobacco Smoked in Last 30 Days: No e-Cigarette/Vaping Use: Never Used Second Hand Smoke Exposure: No Use of substances other than those prescribed or required for medical reasons: Yes Substance Use Type: Marijuana Advance Directives: No Advance Directives Information Provided: No service: No Current occupational status: employed Current occupational exposures/hazards: No Cognitive needs: No Hearing needs: No Vision needs: Yes Physical Exam Vital Signs: Vital Signs: Last Vital Signs Temp 97.8 F 05/25/24 12:15 Pulse 86 05/25/24 12:15 Resp 16 05/25/24 12:15 BP 106/58 L 05/25/24 12:15 Pulse Ox 99 05/25/24 12:15 O2 Del Method Room Air 05/25/24 12:15 BMI result Body Mass Index 43.0 Appearance: Alert. Oriented X3. No acute distress. Head: normocephalic, atraumatic. Eyes: Pupils equal, round and reactive to light. ENT: Pharynx normal. No tonsillar swelling or exudate. Neck: Normal inspection. Neck supple. CVS: Normal heart rate and rhythm. Pulses normal. Respiratory: No respiratory distress. Breath sounds coarse at the bilateral bases without wheezes or rhonchi Abdomen: Soft and nontender. +BS x4 Skin: Skin warm and dry. Normal skin color. Normal skin turgor. No rashes. Extremities: No lower extremity edema. No joint swelling. Neuro/psych: Oriented X 3. No motor deficit. No sensory deficit. CN II-XII intact. Normal speech and cognition. Medications Administered Discontinued Medications Generic Name Dose Route Start Last Admin Trade Name Rosalva PRN Reason Stop Dose Admin Albuterol Sulfate 2.5 mg/ 0 mg 05/25/24 10:03 05/25/24 10:08 Albuterol/Ipratropium 3 ml INHALE 05/25/24 10:04 5 dose ONCE ONE Administration Methylprednisolone Sodium Succinate 40 mg 05/25/24 09:40 05/25/24 10:30 Methylprednisolone Sod Succ 40 Mg/Ml Vial IVPUSH 05/25/24 09:41 40 mg ONCE ONE Administration Medical Decision Making Medical Decision Making [facility] Narrative: 24-year-old female with a history of asthma, ADHD, fibromyalgia presents to the ER for evaluation of shortness of breath, difficulty breathing, asthma exacerbation started couple of days ago and got acutely worse this morning. On arrival to the ER she is hemodynamically stable, not in any respiratory distress. She reports dizziness and chest pain that started this morning when she had a coughing fit. She is saturating 100% on room air. ED bronch protocol ordered along with IV Solu-Medrol. Chest x-ray was done and did not show any evidence of pneumonia, pneumothorax. Her COVID swab was negative. Her lab work is unremarkable. She is feeling much better upon re-evaluation. Her respiratory status remained stable. She is stable for discharge home with prednisone and albuterol nebs at home. Recommended she follow-up with pulmonology, this is not her 1st ER visit for asthma patient expressed understanding all questions were answered. Differential Diagnosis Differential Diagnoses: The differential diagnosis associated with the presentation includes Acute asthma exacerbation, COPD exacerbation, anxiety, pneumonia, bronchitis, croup, other viral syndrome Admission/Observation Consideration of admission/observation: Escalation of care including admission/observation considered Improved after treatment, stable for discharge Lab Data [facility] Lab Attestation statement: I reviewed the patient's lab results. No leukocytosis, no major metabolic derangement 05/25/24 10:08 05/25/24 10:08 Labs: Lab Results 05/25/24 Range/Units 10:08 WBC 6.9 (4.8-10.8) X10*3/uL RBC 4.89 (4.20-5.50) X10*6/uL Hgb 13.2 (12.0-16.0) g/dl Hct 40.4 (37.0-47.0) % MCV 82.6 (80.0-98.0) fL MCH 27.0 (27.0-33.0) pg MCHC 32.7 (31.0-35.0) g/dl RDW 12.7 (11.0-16.0) % Plt Count 260 (160-400) X10*3/uL MPV 9.7 (9.4-12.3) fL Immature Gran % (Auto) 0.3 (0.0-0.4) % Neut % (Auto) 58.6 (45-73) % Lymph % (Auto) 33.3 (20-40) % Foard % (Auto) 5.8 (2-11) % Eos % (Auto) 1.6 (0-4) % Baso % (Auto) 0.4 (0-2) % Lymph # (Auto) 2.3 (1.2-4.9) X10*3/uL Foard # (Auto) 0.4 (0.1-1.2) X10*3/uL Eos # (Auto) 0.1 (0.0-0.4) X10*3/uL Baso # (Auto) 0.0 (0.0-0.2) X10*3/uL Abs Immat Gran (auto) 0.02 (0.00-0.03) X10*3/uL Absolute Neuts (auto) 4.0 (2.0-8.3) x10*3/uL Absolute Nucleated RBC 0.000 (0.0-0.012) X10*3/uL Nucleated RBC % (auto) 0.0 (0.0-0.2) /100WBC Sodium 141 (135-145) mmol/L Potassium 4.7 (3.3-5.1) mmol/L Chloride 107 (96-108) mmol/L Carbon Dioxide 24 (22-29) mmol/L Anion Gap 15 (12-20) BUN 13 (9-16) mg/dL Creatinine 0.65 (0.5-1.4) mg/dL Estim Creat Clear Calc 158.9 Estimated GFR > 60 Random Glucose 102 (60-115) mg/dL Calcium 9.2 (8.4-10.2) mg/dL Urine Color Yellow Urine Appearance Clear Urine pH 6.0 (5.0-9.0) Ur Specific Irwin >= 1.030 H (1.005-1.025) Urine Protein Negative (Neg-Trace) mg/dL Urine Glucose (UA) Negative (Negative) mg/dL Urine Ketones Negative (Negative) mg/dL Urine Blood Negative (Negative) Urine Nitrite Negative (Negative) Ur Leukocyte Esterase Negative (Negative) Urine Test NEGATIVE (NEGATIVE) COVID-19 (HARPREET) Negative (Negative) COVID-19 Clin Com See Note Independent Interpretation I performed an independent interpretation of an: EKG and Plain X-Ray Interpretation: EKG with normal sinus rhythm, sinus arrhythmia, ventricular rate 85 beats per minute, no ST segment elevations or depressions, normal QTC, normal AL interval Chest x-ray with clear lungs, no pneumothorax or pneumonia Radiology Impression Discussion of test interpretation with radiology: I have reviewed the radiologist's reading. Radiologist Impression: EXAMINATION: XR CHEST 2 VIEW CLINICAL INFORMATION: Chest pain and shortness of breath COMPARISON: 02/25/2022 TECHNIQUE: PA and lateral views of the chest obtained. FINDINGS: The lungs are clear. There are no pleural effusions. The cardiomediastinal silhouette is normal. XR/XR chest 2V IMPRESSION: No active cardiopulmonary disease. Independent Historian Clinical information obtained from an independent historian. History obtained from or confirmed by: EMS External Record Review External record reviewed: Prior outpatient labs and Prior outpatient radiology Tests considered The following testing was considered but not selected: CTA was considered however perc negative. Low clinical suspicion for pulmonary embolism Prescription Management I considered prescription management with: Antibiotic and Other (Steroids, bronchodilators) Chronic Conditions Patient?s care impacted by: Other (Asthma, anxiety) Critical Care Time Critical Care Time Critical Care Time: No Discharge Plan Discharge Clinical Impression: Asthma with acute exacerbation Qualifiers: Asthma severity: mild Asthma persistence: intermittent Qualified Code(s): J45.21 - Mild intermittent asthma with (acute) exacerbation Patient Disposition: Home, Self-Care Instructions: Asthma (ED) Additional Instructions: Your chest x-ray was normal. Your COVID test was negative. Your lab workup was unremarkable Recommend taking the prescribed prednisone as directed. Use albuterol inhaler vs nebulizers as needed for shortness of breath or wheezing Recommend following up with pulmonology for further evaluation and treatment. Call for an appointment If you develop new or worsening symptoms call 911 or come back to the ER for further evaluation. Prescriptions: New albuterol sulfate 0.63 mg/3 mL solution for nebulization 0.63 mg inhalation Q4-6H PRN (Reason: shortness of breath or wheezing) Qty: 75 0RF prednisone 20 mg tablet 40 mg PO DAILY Qty: 10 0RF No Action albuterol sulfate 0.63 mg/3 mL solution for nebulization 0.63 mg inhalation QID PRN (Reason: shortness of breath or wheezing) Qty: 75 0RF clonidine HCl 0.3 mg tablet 0.3 mg PO DAILY buspirone 10 mg tablet PO dexmethylphenidate 10 mg capsule,ER biphasic 50-50 10 mg PO QAM albuterol sulfate 90 mcg/actuation HFA aerosol inhaler inhalation Stand Alone Forms: Work/School Release Interventions: ED Discharge Assessment Last Done: 05/25/24 12:15 Print Language: Togolese
[2024-05-25 10:08] VITALS: PULSE 75; RESP 16; O2SAT 97
[2024-05-25] MEDS: Albuterol Sulfate 2.5 MG, Albuterol/Iprat 2.5/0.5MG 3 ML 3 ML INHALE (10:08)
[2024-05-25 10:20] LABS: MANUAL DIFF FLAG NO
[2024-05-25 10:21] LABS: Basophils Percent Auto 0.4 % (0-2); Eosinophils Absolute Auto 0.1 X10*3/uL (0.0-0.4); Eosinophils Percent Auto 1.6 % (0-4); Hematocrit 40.4 % (37.0-47.0); Hemoglobin 13.2 g/dl (12.0-16.0); Imm Gran Abs Auto 0.02 X10*3/uL (0.00-0.03); Imm Gran Pct Auto 0.3 % (0.0-0.4); Lymphocytes Absolute Auto 2.3 X10*3/uL (1.2-4.9); Lymphocytes Percent Auto 33.3 % (20-40); Mean Corpuscular HGB Conc 32.7 g/dl (31.0-35.0); Mean Corpuscular Volume 82.6 fL (80.0-98.0); Mean Platelet Volume 9.7 fL (9.4-12.3); Monocytes Absolute Auto 0.4 X10*3/uL (0.1-1.2); Monocytes Percent Auto 5.8 % (2-11); Neutrophils Percent Auto 58.6 % (45-73); Platelet Count 260 X10*3/uL (160-400); Red Blood Count 4.89 X10*6/uL (4.20-5.50); Red Cell Distribution Width 12.7 % (11.0-16.0); White Blood Count 6.9 X10*3/uL (4.8-10.8)
[2024-05-25 10:25] LABS: Appearance Urine Clear; Color Urine Yellow; Glucose Urine UA Negative (Negative); Leukocyte Esterase Urine Negative (Negative); Nitrite Urine Negative (Negative); Specific Gravity - Urine >= 1.030 (1.005-1.025); Urine Blood Negative (Negative); Urine Ketones Negative (Negative); Urine Protein Negative (Neg-Trace)
[2024-05-25 10:29] LABS: UPreg QC Valid YES; Urine Pregnancy NEGATIVE (NEGATIVE)
[2024-05-25] MEDS: methylPREDNISolone Sod Succ 40 MG/ML VIAL IVPUSH (10:30)
[2024-05-25 10:37] LABS: Anion Gap 15 (12-20); Blood Urea Nitrogen 13 mg/dL (9-16); COVID-19 Test Negative (Negative); Calcium 9.2 mg/dL (8.4-10.2); Carbon Dioxide 24 mmol/L (22-29); Chloride 107 mmol/L (96-108); Creatinine Clr Calc Pharmacy 158.9; Estimated Glomerular Filt Rate > 60; Glucose Random 102 mg/dL (60-115); IDNOW Serial# 08D9AD1C; Potassium 4.7 mmol/L (3.3-5.1); Sodium 141 mmol/L (135-145)
[2024-05-25 10:50] VITALS: BP 110/62; PULSE 104; RESP 16; O2SAT 99
[2024-05-25 12:00] VITALS: BP 106/58; PULSE 86; RESP 16; O2SAT 99
[2024-05-25 12:15] VITALS: BP 106/58; PULSE 86; RESP 16; TEMP 36.6; O2SAT 99
== END 2024-05-25 12:29 | disposition home or self-care (01) ==
PROVIDERS: Physician Assistant; Emergency Provider Emergency Medicine; PCP Internal Medicine
DX: J45.21 Mild intermittent asthma with (acute) exacerbation (principal); R06.02 Shortness of breath; R05.9 Cough, unspecified; R07.89 Other chest pain; Z11.52 Encounter for screening for COVID-19; Z79.899 Other long term (current) drug therapy
CPT/HCPCS: 71046; 80048; 81003; 81025; 85025; 87635; 93005; 94640; 96374; 99284; 99285; J2919

== ENCOUNTER → 2024-05-25 09:40 | Outpatient (BNV) | payer OTHER, SELFPAY | PROVIDERS: Emergency Provider Emergency Medicine; PCP Internal Medicine; Visit Provider Internal Medicine | DX: I49.9 Cardiac arrhythmia, unspecified (principal) | CPT/HCPCS: 93010 ==

== ENCOUNTER 2024-07-12 08:21 | Outpatient (AMB) | payer OTHER, SELFPAY ==
[2024-07-12 08:24] VITALS: BP 90/54; PULSE 81; BMI 44.0
--- NOTE | 2024-07-12 08:24 | MHC.OFFVIS ---
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 She states that whenever she is trying to get up from a sitting position, she can get dizzy. What she is describing is suggestive of orthostatic hypotension. Additionally, she also gets sensations of heart racing at different times. Otherwise, no known cardiac issues like congenital heart disease. She states she has had episodes of passing out since she was a child. Apparently saw a drywall boardhanger about 4 years ago who told her that she needs to lose weight but otherwise the 30 day monitor which did not show anything of significance, per patient. [facility] Medical History (Updated 07/12/24 @ 08:44 by Luisito Coulter MD) Seizures Eating disorder Asthma Insomnia Surgical History (Updated 07/12/24 @ 08:32 by Celine Salmeron CMA) History of wisdom tooth extraction Family History Mother Heart problem Diabetes Mental health disorder Father Diabetes Mental health disorder Family/Other Substance use disorder Social History Housing: Apartment Alcohol intake: never Patient Tobacco Use Status: Never used Tobacco e-Cigarette/Vaping Use: Never Used Second Hand Smoke Exposure: No Substance Use Type: Marijuana service: No Current occupational status: employed Current occupational exposures/hazards: No Cognitive needs: No Hearing needs: No Vision needs: Yes Review of Systems Const Denies chills, Denies daytime sleepiness, Denies fatigue, Denies fever(s), Denies poor appetite, Denies snoring, Denies stops breathing during sleep, Denies weakness, Denies weight gain and Denies weight loss Eyes Denies loss of vision ENT Denies dizziness and Denies hearing loss Card Reports chest pain, Denies irregular heart rhythm, Denies claudication, Reports leg edema, Denies lightheadedness, Reports palpitations, Reports dyspnea on exertion and Denies orthopnea Resp Denies cough, Denies excessive phlegm production, Reports dyspnea on exertion, Denies snoring and Denies wheezing GI Denies abdominal pain, Denies hematochezia, Denies change in bowel habits, Denies nausea and Denies vomiting Denies urinary frequency and Denies dysuria Musc Denies arthralgias, Denies muscle weakness, Denies numbness and Denies other Skin/Breast Denies nail changes and Denies rash Neuro Denies Abnormal speech present, Denies dizziness, Denies loss of vision, Denies memory loss, Denies numbness and Denies weakness Psych Denies depression and Denies memory loss Endo Denies fatigue and Reports palpitations Tc/Lymph Denies easy bruising Aller/Immun Denies wheezing Physical Exam Vital Signs: Last Vital Signs Pulse 81 07/12/24 08:24 BP 90/54 L 07/12/24 08:24 BMI result Body Mass Index 44.0 Const General: comfortable and no acute distress Orientation/consciousness: patient oriented x3 HEENT Other: Unremarkable Head: Yes normal to inspection Neck Neck: Yes normal visual inspection Chest Chest palpation & inspection: normal inspection of the chest Resp Auscultation: clear to auscultation bilaterally Cardio Palpation: normal PMI Heart sounds: S1 normal heart sound present, S2 normal heart sound present, no gallops, no murmurs and no rubs GI Palpation (GI): Soft to palpation Back/Spine/Pelvis Other: unremarkable Skin General skin exam: no rashes or lesions noted Neuro General: patient oriented x3 Speech: No Abnormal speech present Extrem General: Yes normal to inspection Psych Mental Status: mental status grossly normal Assessment & Plan Assessment & Plan (1) Orthostatic hypotension: Code(s): I95.1 - Orthostatic hypotension Category: Medical Plan EKG with underlying sinus rhythm at sinus arrhythmias; no significant ST-T changes; normal TN and corrected QT. Her symptoms are suggestive of orthostatic hypotension. She is on clonidine for insomnia and that may lead to blood pressure issues. We discussed about this today. Advised her to discuss with psychiatry about alternative medications. Otherwise, we will get an echocardiogram for cardiac function and tilt-table study. Follow-up after the above. Orders: Orders CA echo transthoracic complete Today I95.1 - Orthostatic hypotension ECG Tilt Table Test Today I95.1 - Orthostatic hypotension, R55 - Syncope and collapse Coding Level of Care Code New Pt Level 3 (46880) Diagnoses Orthostatic hypotension I95.1
== END 2024-07-12 09:02 | disposition home or self-care (01) ==
PROVIDERS: PCP Internal Medicine; Referring Provider Internal Medicine; Visit Provider Internal Medicine
DX: I95.1 Orthostatic hypotension (principal)
CPT/HCPCS: 99213

== ENCOUNTER → 2024-07-12 08:21 | Outpatient (BNVA) | payer OTHER, SELFPAY | PROVIDERS: PCP Internal Medicine; Visit Provider Internal Medicine | DX: I95.1 Orthostatic hypotension (principal) | CPT/HCPCS: 99212 ==

== ENCOUNTER → 2024-08-03 12:40 | Outpatient (REF) | payer OTHER, SELFPAY ==
--- NOTE | 2024-08-03 12:50 | CA_ITS ---
Transthoracic Echocardiogram Patient (Last, First, Middle): Cady Carter, Gender: Female Date of : 2000 Age: 24 Procedure Date: 08/03/2024 Procedure Type: Transthoracic Echocardiogram Location: OP Height: 160.02 cm Weight: 112.04 kg BSA: 2.12 m2 Heart Rate: bpm BP: 102 / 73 mmHg Sulfuric Acid Plant Operator: NICHOLAS Referring MD: Luisito Coulter MD Health And Safety Trainer: Álvaro Rose MD Symptoms: I95.1 - Orthostatic hypotension Study Quality: Fair ECG Rhythm: Sinus Conclusions: - Normal study Findings Left Ventricle Normal left ventricular size, thickness, and systolic function. The visually estimated ejection fraction is between 60-65%. Diastolic function is normal for age. Peak GLS is -22.4%, within normal limits. Right Ventricle Normal right ventricular cavity size and systolic function. Atria Both atria are normal in size. There is no evidence of interatrial shunt. Aortic Valve Normal aortic valve structure and function. There is no aortic valve stenosis. There is no aortic valve regurgitation. Mitral Valve Normal mitral valve structure and function. There is no mitral valve regurgitation. There is no mitral valve stenosis. Pulmonic Valve The pulmonic valve is likely normal. There is trace pulmonic valve regurgitation. Tricuspid Valve Normal tricuspid valve structure. Tricuspid regurgitation envelope is inadequate for calculation of right ventricular systolic pressure. Normal right atrial pressure. Great Vessels All visible segments of the aorta are normal in size. The pulmonary artery was not well visualized. Venous The inferior vena cava is normal in size and collapses greater than 50% with inspiration. Pericardium/Pleural There is no evidence of pericardial effusion. Prior Study Comparison No prior study available for comparison. Measurements 2D Linear Measurements IVSd: 0.67 0.6-0.9/0.6-1.0 cm LVIDd: 5.34 3.9-5.3/4.2-5.9 cm LVIDd Index: 2.52 2.4-3.2/2.2-3.1 cm/m2 LVIDs: 3.54 2.0-3.6 cm LVPWd: 0.76 0.7-1.1 cm LA Diam: 3.60 2.7-3.8/3.0-4.0 cm LAIDs Index: 1.70 1.5-2.3 cm/m2 LV Mass: 163.62 67-162/88-224 g LV Mass Index: 77.18 43-95/49-115 g/m2 LVOT Diam: 1.90 3.0+(-)1.3 cm 2D Systolic Function EF 4C: 61.60 >55% EF 2C: 60.40 >55% EF BiP: 60.20 >55% Mitral Valve MV Pk E: 0.92 MV PK A: 0.67 MV Decel Time: 204.00 E/A: 1.40 E'Lateral: 16.80 E'Medial: 10.70 E/E' Med: 8.60 E/E' Lat: 5.50 PHT: 60.00 MVA PHT: 3.67 Decel [place]: 4.53 Aortic Valve AoV Pk Julio: 1.62 AoV Mn Julio: 1.09 AoV VTI: 0.37 AoV Pk Grad: 10.00 Aov Mn Grad: 6.00 SKIP Cont.VTI: 2.15 LVOT LVOT Pk Julio: 1.38 LVOT Mn Julio: 0.93 LVOT VTI: 0.28 LVOT Pk Grad: 8.00 LVOT Mn Grad: 4.00 LVOT Diam: 1.90 LVOT Area: 2.84 Diastolic Function MV Pk E: 0.92 MV Pk A: 0.67 E/A: 1.40 E'Medial: 10.70 E/E' Med: 8.60 E' Laterial: 16.80 E/E' Lat: 5.50 Right Ventricle TAPSE (mm): 27.40 TVS' Julio: 12.00 Tricuspid Valve RA Press: 3.00 Great Vessels Aorta Sinus of Valsalva: 2.91 2.0-3.[address] [place]: 2.25 1.7-3.4 cm Ao Asc: 2.90 2.1-3.4 cm Ao Arch: 2.40 Updated in Other Vendor System with Status of Final Álvaro Rose MD electronically signed on 08/03/2024 2:36:21 PM with status of Final
--- NOTE | 2024-08-03 12:50 | ECG_ITS ---
Test Reason : ORTHO HYPOTENSION Blood Pressure : / mmHG Vent. Rate : 077 BPM Atrial Rate : 077 BPM P-R Int : 120 ms QRS Dur : 082 ms QT Int : 386 ms P-R-T Axes : 003 050 042 degrees QTc Int : 436 ms Normal sinus rhythm Normal ECG When compared with ECG of 25-MAY-2024 10:22, No significant change was found Referred By: Krissy Smith Electronically Signed By:CYRUS RHOADES
== END ==
LOC: HO.CARD 12:40
PROVIDERS: PCP Internal Medicine; Visit Provider Internal Medicine
DX: I95.1 Orthostatic hypotension (principal); R00.2 Palpitations
CPT/HCPCS: 93005; 93306; 93356

== ENCOUNTER → 2024-08-03 12:50 | Outpatient (BNV) | payer OTHER, SELFPAY | PROVIDERS: PCP Internal Medicine; Visit Provider Internal Medicine Cardiovascular Disease | DX: I95.1 Orthostatic hypotension (principal) | CPT/HCPCS: 93306; 93356 ==

== ENCOUNTER 2024-09-27 13:34 | Outpatient (AMB) | payer OTHER, SELFPAY ==
--- NOTE | 2024-09-27 14:08 | MHC.OFFVIS ---
Vital Signs 09/27/24 14:09 Height 5 ft 3 in Weight 249 lb 9.012 oz BMI 44.2 BP 118/68 Blood Pressure Location Lt brachial Position Sitting Pulse 96 Pulse Source Pulse Oximeter Intake Visit Reasons: f/up-echo/ tilt table [employer] Required: No Accompanied by: Self / Same As Patient Allergies No Known Allergies Allergy (Verified 05/25/24 09:17) Medication List - Last Reconciled 09/27/24 by Luisito Coulter MD albuterol sulfate 0.63 mg (3 mL) inhalation Q4-6H PRN albuterol sulfate 90 mcg/actuation inhalation buspirone 15 mg PO BEDTIME cholecalciferol (vitamin D3) 50 mcg PO DAILY dexmethylphenidate ER 15 mg PO QAM HPI Comments Details: Cady returns for follow-up. Recently seen in evaluation for dizziness. She had stated that she was getting dizzy whenever she was trying to get up from a sitting position. Overall, suggestive of orthostatic hypotension. Additionally, she also gets sensations of heart racing at different times. Otherwise, no known cardiac issues like congenital heart disease. She states she has had episodes of passing out since she was a child. Apparently saw a assistant manager retail about 4 years ago who told her that she needs to lose weight but otherwise the 30 day monitor which did not show anything of significance, per patient. Since last seen, she has had an echocardiogram and tilt-table test. [facility] Medical History (Updated 07/12/24 @ 08:44 by Liusito Coulter MD) Seizures Eating disorder Asthma Insomnia Surgical History History of wisdom tooth extraction Family History Mother Heart problem Diabetes Mental health disorder Father Diabetes Mental health disorder Family/Other Substance use disorder Social History (Updated 09/27/24 @ 14:14 by Celine Salmeron CMA) Housing: Apartment Alcohol intake: current Alcohol intake frequency: holidays/special occasions only Patient Tobacco Use Status: Never used Tobacco e-Cigarette/Vaping Use: Never Used Second Hand Smoke Exposure: No Substance Use Type: Marijuana service: No Current occupational status: employed Current occupational exposures/hazards: No Cognitive needs: No Hearing needs: No Vision needs: Yes Review of Systems Const Denies chills, Denies fatigue, Denies fever(s), Denies weight gain and Denies weight loss ENT Denies dizziness Card Denies chest pain, Denies leg edema, Denies lightheadedness, Denies palpitations, Denies dyspnea on exertion, Denies orthopnea and Denies other Resp Denies cough and Denies dyspnea on exertion GI Denies hematochezia and Denies change in stool character Musc Denies abnormal gait, Denies muscle weakness, Denies numbness, Denies radiating pain into limb and Denies tingling Neuro Denies abnormal gait, Denies dizziness, Denies numbness and Denies tingling Endo Denies fatigue and Denies palpitations Physical Exam Vital Signs: Last Vital Signs Pulse 96 09/27/24 14:09 BP 118/68 09/27/24 14:09 BMI result Body Mass Index 44.2 Const General: comfortable and no acute distress Orientation/consciousness: patient oriented x3 HEENT Other: Unremarkable Head: Yes normal to inspection Neck Neck: Yes normal visual inspection Chest Chest palpation & inspection: normal inspection of the chest Resp Auscultation: clear to auscultation bilaterally Cardio Palpation: normal PMI Heart sounds: S1 normal heart sound present, S2 normal heart sound present, no gallops, no murmurs and no rubs GI Palpation (GI): Soft to palpation Back/Spine/Pelvis Other: unremarkable Skin General skin exam: no rashes or lesions noted Neuro General: patient oriented x3 Extrem General: Yes normal to inspection Psych Mental Status: mental status grossly normal Assessment & Plan Assessment & Plan (1) Orthostatic hypotension: Code(s): I95.1 - Orthostatic hypotension Category: Medical Plan EKG with underlying sinus rhythm at sinus arrhythmias; no significant ST-T changes; normal [place] and corrected QT. Echocardiogram with normal LVEF, 60-65%; normal peak global longitudinal strain and otherwise unremarkable. In the tilt-table test, it was felt that her blood pressure actually went up to 161/100 mm Hg with a heart rate staying at 79 and she is still had sensations of lightheaded. Hence they felt it was not correlating with heart rate or blood pressure. Overall, not entirely clear as to the etiology of his symptoms. Clinically, suggestive of orthostasis but tilt-table findings are otherwise. On looking through her blood pressures, there are indeed blood pressures in the 90s and somewhat lowish but somewhat on the higher side. Hence she might have labile blood pressure readings and could still have some orthostasis with body position changes which could cause symptoms. We discussed about this today. Overall, mainly precautions while changing positions and can try to liberalize salt intake and see if that makes a difference. We advised her to cut back on the clonidine but she states it made her feel worse. She will contact us with ongoing concerns. Coding Level of Care Code Est Pt Level 3 (34378) Diagnoses Orthostatic hypotension I95.1
[2024-09-27 14:09] VITALS: BP 118/68; PULSE 96; BMI 44.2
== END 2024-09-27 14:28 | disposition home or self-care (01) ==
PROVIDERS: PCP Internal Medicine; Visit Provider Internal Medicine
DX: I95.1 Orthostatic hypotension (principal)
CPT/HCPCS: 99213

== ENCOUNTER → 2024-09-27 13:34 | Outpatient (BNVA) | payer OTHER, SELFPAY | PROVIDERS: PCP Internal Medicine; Visit Provider Internal Medicine | DX: I95.1 Orthostatic hypotension (principal) | CPT/HCPCS: 99212 ==

== ENCOUNTER 2024-10-24 13:11 | Emergency (ER) | payer OTHER, SELFPAY ==
--- NOTE | ~2024-10-24 | CT_ITS ---
EXAMINATION: CT KNEE WITHOUT CONTRAST, RIGHT CLINICAL INFORMATION: Fall. Right knee pain. Limited motion. Concern for patellar fracture, distal femoral fracture, patellar tendon injury. COMPARISON: Right knee radiographs done earlier the same day. TECHNIQUE: Contiguous axial CT images of the right knee were obtained without contrast. Multiplanar reformats were provided and reviewed. This CT examination was performed using dose optimization techniques as appropriate, variously including the following: *Automated exposure control *Adjustment of mA and/or kV according to patient size (this includes techniques or standardized protocols for targeted exams where dose is matched to indication/reason for exam; i.e. extremities or head) *Use of iterative reconstruction technique DLP: 187 mGy-cm FINDINGS: No acute fracture or dislocation. Specifically, the patella is intact. Normal patellofemoral alignment. No joint space narrowing or marginal osteophytes. No concerning lytic or blastic osseous lesion. No joint effusion. Subcutaneous edema ventral to the patella which could represent a soft tissue contusion versus early prepatellar bursitis. Additionally there appears to be stranding/edema interposed between the iliotibial band and lateral femoral condyle which can be seen in the setting of iliotibial band friction syndrome. The visualized muscles and tendons including the quadriceps and patellar tendons are grossly intact. Evaluation somewhat limited on CT examination. No soft tissue mass or fluid collection. CT/CT knee RT wo IV con IMPRESSION: 1. No acute fracture or dislocation. Specifically, the patella is intact. 2. Subcutaneous edema ventral to the patella which could represent a soft tissue contusion versus early prepatellar bursitis. 3. Stranding/edema interposed between the iliotibial band and lateral femoral condyle which can be seen in the setting of iliotibial band friction syndrome. Electronically signed by: Dayne Solis MD 10/24/2024 03:08 PM [facility]
--- NOTE | ~2024-10-24 | XR_ITS ---
EXAMINATION: XR KNEE, RIGHT CLINICAL INFORMATION: pain COMPARISON: None available. TECHNIQUE: Four views of the right knee. FINDINGS: No fracture or joint effusion. Alignment is anatomic. Joint spaces are maintained. No abnormal soft tissue calcification. XR/XR knee RT 3V IMPRESSION: Normal right knee. Electronically signed by: Santos Mendez MD 10/24/2024 01:52 PM [facility]
[2024-10-24 13:14] VITALS: BP 149/106; PULSE 87; RESP 18; TEMP 36.6; O2SAT 100; BMI 36.3
--- NOTE | 2024-10-24 13:14 | ED_ITS ---
HPI - Extremity Injury (Lower) General Chief Complaint: Extremity Injury, Lower Stated Complaint: Fall - R knee pain/numbness Time Seen by Provider: 10/24/24 13:49 Source: patient Mode of arrival: ambulatory Limitations: no limitations History of Present Illness ED Provider: Maggy Smith PA-C HPI Narrative: Patient is a 24 year old assigned female at , now non-binary, with a histor y of SHANNON, ADHD, fibromyalgia, and hypermobility presenting to the emergency department today with right knee pain. Patient states that they were walking to the bus when they slipped and landed on a flexed knee against a curb. Patient states that they cannot extend the knee or walk on the right lower leg without significant pain. Patient denies any head strike or loss of consciousness or head strike with the incident, dizziness, lightheadedness, abdominal pain, nausea, vomiting, fever, chills, blurry vision, double vision, loss of vision, chest pain, difficulty breathing, shortness of breath, back pain, night sweats, pain with urination, increased urinary frequency, increased urinary urgency, blood in their urine or stool, syncope or a near syncopal episode, bowel incontinence, bladder incontinence, or any other complaints at this time. Related Data Home Medications ?Medication ?Instructions ?Recorded ?Confirmed albuterol sulfate 90 mcg/actuation inhalation 04/05/24 09/27/24 aerosol inhaler cholecalciferol (vitamin D3) 50 50 mcg PO DAILY 07/12/24 09/27/24 mcg (2,000 unit) capsule buspirone 10 mg tablet 15 mg PO BEDTIME 09/27/24 09/27/24 dexmethylphenidate 10 mg 15 mg PO QAM 09/27/24 09/27/24 capsule,extended release [id number] Previous Rx's ?Medication ?Instructions ?Recorded albuterol sulfate 0.63 mg/3 mL 0.63 mg (3 mL) inhalation Q4-6H 05/25/24 solution for nebulization PRN shortness of breath or wheezing #75 mL Allergies Allergy/AdvReac Type Severity Reaction Status Date / Time walnut Allergy Anxiety Verified 10/24/24 13:17 Review of Systems Constitutional: Constitutional: Reports no additional constitutional complaints, Denies chills, Denies fever(s) and Denies night sweats Eyes: Eyes: Reports no additional eye complaints, Denies blurry vision, Denies change in vision, Denies diplopia, Denies eye discharge, Denies loss of vision and Denies eye pain ENT: Denies dizziness Cardiovascular: Cardiovascular: Reports no additional cardiovascular complaints, Denies chest pain, Denies lightheadedness, Denies Loss of Consciousness and Denies dyspnea Respiratory: Respiratory: Reports no additional respiratory complaints and Denies dyspnea Gastrointestinal: Gastrointestinal: Reports no additional gastrointestinal complaints, Denies abdominal pain, Denies melena, Denies hematochezia, Denies change in bowel habits and Denies change in stool character Genitourinary: Genitourinary: Denies hematuria, Denies urinary frequency, Denies dysuria, Denies urinary incontinence, Denies urinary hesitancy and Denies urinary urgency Musculoskeletal: Musculoskeletal: Reports no additional musculoskeletal complaints, Denies numbness and Denies tingling Comments: right knee pain Neurologic: Denies dizziness, Denies loss of vision, Denies numbness and Denies tingling Psychiatric: Psychiatric: Reports no additional psychiatric complaints Endocrine: Endocrine: Reports no additional endocrine complaints Hematologic/Lymphatic: Hematologic/Lymphatic: Reports no additional hematologic/lymphatic complaints Allergic/Immunologic: Allergic/Immunologic: Reports no additional allergic/immunologic complaints PMFSH Past Medical History Attestation statement: The following information was validated with the patient. Source: old records reviewed and nursing notes reviewed Medical History Seizures Eating disorder Asthma Insomnia Surgical History History of wisdom tooth extraction Family History Family History Mother Heart problem Diabetes Mental health disorder Father Diabetes Mental health disorder Family/Other Substance use disorder Social History Social History Housing: Apartment Alcohol intake: current Alcohol intake frequency: holidays/special occasions only Patient Tobacco Use Status: Never used Tobacco e-Cigarette/Vaping Use: Never Used Second Hand Smoke Exposure: No Substance Use Type: Marijuana Advance Directives: No Advance Directives Information Provided: Yes service: No Current occupational status: employed Current occupational exposures/hazards: No Cognitive needs: No Hearing needs: No Vision needs: Yes Physical Exam Vital Signs: Vital Signs: Last Vital Signs Temp 98 F 10/24/24 16:27 Pulse 87 10/24/24 16:27 Resp 18 10/24/24 16:27 BP 149/106 H 10/24/24 16:27 Pulse Ox 100 10/24/24 16:27 O2 Del Method Room Air 10/24/24 16:27 BMI result Body Mass Index 36.3 Const: General: cooperative, no acute distress, alert and awake Nutritional Appearance: well nourished Orientation/consciousness: patient oriented x3 Limitations: no limitations HEENT: Head: Yes normal to inspection and Yes atraumatic Ears: hearing grossly normal bilaterally and external ears normal General nose exam: Normal external nose present, no nasal discharge noted and no epistaxis Face and sinus: Yes normal facial exam, No abrasion and No laceration Mouth: Normal oral and palatal mucosa present, no drooling and no muffled voice Eyes: General: appearance normal, both eyes and all related structures Periorbital: periorbital findings normal Eyelids: Yes eyelids normal Conjunctivae: conjunctivae normal Pupils: Equal, round and reactive pupils present EOM: EOMs intact bilaterally Neck: Neck: Yes normal visual inspection, Yes full ROM and Yes no lymphadenopathy Chest: Chest palpation & inspection: normal inspection of the chest Resp: Effort & Inspection: normal respiratory effort and able to speak in complete sentences GI: Inspection: Yes normal to inspection Neuro: General: patient oriented x3 and moves all extremities Cranial nerves: Yes Equal, round and reactive pupils present Cognition (Neuro): normal cognition Extrem: Other: pain with palpation of the right patella pain with passive extension and flexion of the right knee patient states that she is unable to extend the right knee General: Yes normal to inspection and Yes capillary refill normal Psych: Appearance: grossly normal Mental Status: mental status grossly normal Affect: normal affect Attitude: cooperative Thought process: Normal thought process present Thought content: Normal thought content present Insight: Good insight present (Psych) Course Course Course Narrative: This is an RME: Additional HPI, ROS, PE not included below will be deferred to primary provider. RME assessment and note performed by: Kisha Huitron PA-C This is a [id number], with a hx of asthma, fibromyalgia, anxiety, gluten-sensitive enteropathy, obesity, ADHD, who presents to the ER with a complaint of right knee pain x 1 hour. Reports that she was walking to the bus stop and slipped and fell and her right knee landed onto the side of the curb on the street. Reports that she has numbness starting into her right knee extending. No LOC. No headstrike. Exquisite tenderness palpation along the patella Plan: X-ray Medications Administered Discontinued Medications Generic Name Dose Route Start Last Admin Trade Name Rosalva PRN Reason Stop Dose Admin Morphine Sulfate 4 mg 10/24/24 14:08 10/24/24 14:14 Morphine Sulfate 4 Mg/Ml Cartridge IM 10/24/24 14:09 4 mg ONCE ONE Administration Protocol Ondansetron HCl 4 mg 10/24/24 14:08 10/24/24 14:14 Ondansetron Odt 4 Mg Tab.Rapdis TRANSLINGU 10/24/24 14:09 4 mg ONCE ONE Administration Medical Decision Making Medical Decision Making [facility] Narrative: Patient is a 24 year old assigned female at , now non-binary, with a history of SHANNON, ADHD, fibromyalgia, and hypermobility presenting to the emergency department today with right knee pain. Patient's physical exam was as noted in the physical exam portion of this note. Patient's right knee x-ray showed no acute process. Patient's right knee CT showed a possible patellar confusion vs. bursitis and stranding / edema between the iliotibial band and lateral femoral condyle consistent with iliotibial band friction syndrome. Patient's exam is concerning for a sprain vs. internal knee injury vs. a pateller tendon injury. I spoke to the orthopedic team who recommended a knee immobilizer, crutches, and following up outpatient. I explained my physical exam findings as well as all test results to the patient. I answered all questions asked by the patient. Patient received IM Morphine which, upon re-evaluation, they stated it helped their symptoms significantly. Patient's right knee had an immobilizer applied, without incident. Patient's PMS was intact prior to and after immobilizer placement. I stressed the importance of the patient taking their medication as directed (either prescribed or as the over the counter packaging recommends). I stressed the importance of the patient following up with their primary care provider. I stressed the importance of the patient returning to the emergency department immediately if their symptoms were to worsen or if they were to develop any dizziness, shortness of breath, difficulty breathing, chest pain, blurry vision, loss of vision, nausea, vomiting, abdominal pain, fever, chills, back pain, or any other complaints. Patient verb alized agreement and understanding with this treatment plan and discharge. Differential Diagnosis Differential Diagnoses: The differential diagnosis associated with the presentation includes Knee sprain Knee injury Patellar tendon injury Bursitis Contusion Admission/Observation Consideration of admission/observation: Escalation of care including admission/observation considered Patient would have been admitted to the hospital had her work up had any fi ndings where hospital admission was appropriate and her clinical presentation warranted hospital admission. Consult Healthcare Provider Management of the patient was discussed with: Social Services Coordinator (spoke to the orthopedic team as noted in the MDM Rationale portion of this note.) Independent Interpretation I performed an independent interpretation of an: Plain X-Ray and CT Scan Interpretation: My interpretation is in agreement with the radiologist's impression of these imaging studies. EXAMINATION: CT KNEE WITHOUT CONTRAST, RIGHT CLINICAL INFORMATION: Fall. Right knee pain. Limited motion. Concern for patellar fracture, distal femoral fracture, patellar tendon injury. COMPARISON: Right knee radiographs done earlier the same day. TECHNIQUE: Contiguous axial CT images of the right knee were obtained without contrast. Multiplanar reformats were provided and reviewed. This CT examination was performed using dose optimization techniques as appropriate, variously including the following: *Automated exposure control *Adjustment of mA and/or kV according to patient size (this includes techniques or standardized protocols for targeted exams where dose is matched to indication/reason for exam; i.e. extremities or head) *Use of iterative reconstruction technique DLP: 187 mGy-cm FINDINGS: No acute fracture or dislocation. Specifically, the patella is intact. Normal patellofemoral alignment. No joint space narrowing or marginal o steophytes. No concerning lytic or blastic osseous lesion. No joint effusion. Subcutaneous edema ventral to the patella which could represent a soft tissue contusion versus early prepatellar bursitis. Additionally there appears to be stranding/edema interposed between the iliotibial band and lateral femoral condyle which can be seen in the setting of iliotibial band friction syndrome. The visualized muscles and tendons including the quadriceps and patellar tendons are grossly intact. Evaluation somewhat limited on CT examination. No soft tissue mass or fluid collection. CT/CT knee RT wo IV con IMPRESSION: 1. No acute fracture or dislocation. Specifically, the patella is intact. 2. Subcutaneous edema ventral to the patella which could represent a soft tissue contusion versus early prepatellar bursitis. 3. Stranding/edema interposed between the iliotibial band and lateral femoral condyle which can be seen in the setting of iliotibial band friction syndrome. Electronically signed by: Dayne Solis MD 10/24/2024 03:08 PM EST RP Dictated By: Dayne Solis MD Signed By: Electronically signed by Dayne Solis MD 10/24/24 1508 EXAMINATION: XR KNEE, RIGHT CLINICAL INFORMATION: pain COMPARISON: None available. TECHNIQUE: Four views of the right knee. FINDINGS: No fracture or joint effusion. Alignment is anatomic. Joint spaces are maintained. No abnormal soft tissue calcification. XR/XR knee RT 3V IMPRESSION: Normal right knee. Electronically signed by: Santos Mendez MD 10/24/2024 01:52 PM EST RP Dictated By: Santos Mendez MD Signed By: Electronically signed by Santos Mendez MD 10/24/24 1352 Radiology Impression Discussion of test interpretation with radiology: I have reviewed the radiologist's reading. Procedures Orthopedic Splinting/Casting Injury #1: Side: right Lower Extremity Injury Location: knee Lower Extremity Immobilizer: knee immobilizer Other Orthopedic Equipment: crutches Critical Care Time Critical Care Time Critical Care Time: Yes Total Critical Care Time: 44 Attestation: I spent 44 minutes of Critical Care Time with this patient. This does not include time spent on separately reported billable procedures. Discharge Plan Discharge Clinical Impression: Knee sprain Patient Disposition: Home, Self-Care Instructions: Knee Sprain (DC), Crutch Instructions (ED) Additional Instructions: Please keep your immobilizer on. Follow up with your primary care provider and an orthopedic provider. Return to the emergency department immediately if your symptoms worsen or if you develop any dizziness, shortness of breath, difficulty breathing, chest pain, blurry vision, loss of vision, nausea, vomiting, abdominal pain, fever, chills, back pain, or any other complaints. Prescriptions: No Action albuterol sulfate 0.63 mg/3 mL solution for nebulization 0.63 mg inhalation Q4-6H PRN (Reason: shortness of breath or wheezing) Qty: 75 0RF albuterol sulfate 90 mcg/actuation HFA aerosol inhaler inhalation buspirone 10 mg tablet 15 mg PO BEDTIME dexmethylphenidate 10 mg capsule,ER biphasic 50-50 15 mg PO QAM cholecalciferol (vitamin D3) 50 mcg (2,000 unit) capsule 50 mcg PO DAILY Referrals: [facility] [Provider Group] (Call to establish and follow up with an orthopedic provider.) Krissy Longo MD [Primary Care Provider] - Stand Alone Forms: Work/School Release Interventions: ED Discharge Assessment Last Done: 10/24/24 16:27 Discharge Date/Time: 10/24/24 15:50 Print Language: Indonesian
[2024-10-24] MEDS: Ondansetron ODT 4 MG TAB.RAPDIS TRANSLINGU (14:14)
[2024-10-24] MEDS: Morphine Sulfate 4 MG/ML CARTRIDGE IM (14:14)
[2024-10-24 16:27] VITALS: BP 149/106; PULSE 87; RESP 18; TEMP 36.6; O2SAT 100
== END 2024-10-24 15:50 | disposition home or self-care (01) ==
PROVIDERS: Emergency Provider Student in an Organized Health Care Education/Training Program; PCP Internal Medicine
DX: S83.91XA Sprain of unspecified site of right knee, initial encounter (principal); M25.561 Pain in right knee; W01.0XXA Fall on same level from slipping, tripping and stumbling without subsequent striking against object, initial encounter; Y93.89 Activity, other specified; Y92.480 Sidewalk as the place of occurrence of the external cause; Y99.8 Other external cause status; Z79.899 Other long term (current) drug therapy
CPT/HCPCS: 73562; 73700; 96372; 99282; 99284; J2270

== ENCOUNTER → 2024-10-24 13:22 | Outpatient (BNV) | payer OTHER, SELFPAY | PROVIDERS: Emergency Provider Student in an Organized Health Care Education/Training Program; PCP Internal Medicine; Visit Provider Radiology Diagnostic Radiology | DX: M25.561 Pain in right knee (principal) | CPT/HCPCS: 73562 ==

== ENCOUNTER 2024-10-30 09:17 | Outpatient (AMB) | payer OTHER, SELFPAY ==
--- NOTE | 2024-10-30 09:28 | MHC.OFFVIS ---
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 Patient states that they were walking from their clients house and had slipped outside causing her to fall on a flexed knee against the curb. Patient reports that they couldn't extend her knee or walk on the right lower leg without significant pain. Patient [place] [facility] [place] where x-rays were taken and placed in a knee immobilizer. Currently her pain has improved and they are able to apply a little more weight to her leg. States pain is located at the medial and lateral aspect of knee. States not needing motrin for the past 3 days. Hx of hypermobile knees and fibromyalgia. 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 The patient states they were walking out of there client's house when they slipped outside and fell with the knee in hyperflexion. It should be noted the patient was not on work time at the time of this injury. The patient states they were seen in the emergency department, x-rays and CT scan of the right knee obtained. Patient was placed in a knee immobilizer and referred to our office for ortho eval. 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 [employer] Medical History Seizures Eating disorder Asthma Insomnia Surgical History History of wisdom tooth extraction Family History Mother Heart problem Diabetes Mental health disorder Father Diabetes Mental health disorder Family/Other Substance use disorder Social History (Updated 10/30/24 @ 09:37 by COLIN Salcedo) Housing: Apartment Alcohol intake: current Alcohol intake frequency: holidays/special occasions only Patient Tobacco Use Status: Never used Tobacco e-Cigarette/Vaping Use: Never Used Second Hand Smoke Exposure: No Substance Use Type: Marijuana service: No Current occupational status: employed 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 They do have an abrasion over the anterior portion of the knee with some diffuse bruising. Mild tenderness over the proximal tibia medial and laterally. Full range of motion. No ligamentous laxity. Calf supple nontender. Neurovascularly intact. Results Reviewed Results Reviewed: X-rays of the right knee obtained in the emergency department on 10/24 are negative for any obvious fractures or dislocations. CT scan of the right knee obtained in the emergency department on 10/24 may show a subtle nondisplaced tibial plateau fracture Assessment & Plan Assessment & Plan (1) Internal derangement of right knee: Code(s): M23.91 - Unspecified internal derangement of right knee Category: Medical Plan Patient will discontinue the use of the knee immobilizer. She does have crutches which she will use toe-touch weight-bearing on the right. She was placed in a hinged knee brace for support. I did order an MRI of the right knee stat to further assess the integrity of the right knee joint and the likelihood of a fracture. This MRI will be used to help determine the next step in her treatment plan. She will continue to work but must use the crutches and brace at all times. She can remove the brace for resting and hygiene. I will contact her once the MRI scan is complete. Orders: Orders MR knee RT wo con Today S82.141A - Displaced bicondylar fracture of right tibia, initial encounter for closed fracture Coding Level of Care Code New Pt Level 4 (52697) Diagnoses Internal derangement of right knee M23.91
[2024-10-30 09:48] VITALS: BMI 36.3
== END 2024-10-30 10:14 | disposition home or self-care (01) ==
PROVIDERS: PCP Internal Medicine; Visit Provider Physician Assistant
DX: M23.91 Unspecified internal derangement of right knee (principal)
CPT/HCPCS: 99204

== ENCOUNTER → 2024-10-30 09:17 | Outpatient (BNVA) | payer OTHER, SELFPAY | PROVIDERS: PCP Internal Medicine; Visit Provider Physician Assistant | DX: M23.91 Unspecified internal derangement of right knee (principal) | CPT/HCPCS: 99202 ==

== ENCOUNTER 2024-11-01 13:37 | Outpatient (REF) | payer OTHER, SELFPAY ==
--- NOTE | ~2024-11-01 | MR_ITS ---
CLINICAL HISTORY: <OBR.31.1><OBR.31.1.1>Slip </OBR.31.1.1><OBR.31.1.2> fall on snow resulting in knee impact with curb approximately 1 week prior to MRI. Intermittent numbness radiating through right lo wer extremity.</OBR.31.1.2></OBR.31.1> MR right knee without contrast Comparison: None Findings: The medial and lateral menisci are intact. The anterior and posterior cruciate ligaments are intact. The medial collateral ligament is intact without periligamentous edema. There is increased signal within the lateral collateral ligament with periligamentous edema (series 8 images 16 through 21 ). There is edema superficial to the medial and lateral retinaculum, which are intact. The extensor mechanism is intact. There is edema in the subcutaneous fat anterior to the patellar tendon and tibial tuberosity, likely posttraumatic Trace joint fluid. No Chiang's cyst. No fracture, stress reaction or osseous lesion. No hyaline cartilage disease in the patellofemoral, medial and lateral compartments. Impression: Normal menisci. No cruciate ligament tears. Lateral collateral ligament partial tear versus sprain. No osseous or cartilaginous abnormality. This document has been electronically signed by: Rosy Sheikh MD on 11/01/2024 17:13:06
== END 2024-11-01 13:38 | disposition home or self-care (01) ==
LOC: HO.MRI 13:37
PROVIDERS: PCP Internal Medicine; Visit Provider Physician Assistant
DX: S82.141A Displaced bicondylar fracture of right tibia, initial encounter for closed fracture (principal); M23.91 Unspecified internal derangement of right knee
CPT/HCPCS: 73721

== ENCOUNTER → 2024-11-01 13:50 | Outpatient (BNV) | payer OTHER, SELFPAY | PROVIDERS: PCP Internal Medicine; Visit Provider Radiology Diagnostic Radiology | DX: S80.01XA Contusion of right knee, initial encounter (principal) | CPT/HCPCS: 73721 ==

== ENCOUNTER 2024-11-08 13:37 | Outpatient (AMB) | payer OTHER, SELFPAY ==
--- NOTE | 2024-11-08 13:37 | A.OFFVIS_ITS ---
Intake Visit Reasons: Tel-MRI Review,right knee Intake Note: Cady a 24 year old female who is scheduled today for a telephone visit to review an MRI of right knee s/p fall on 10/24/24. Patient reports having improvement in her knee pain however has concerns of pressure that she has been experiencing. Allergies hazelnut Allergy (Verified 11/08/24 13:40) Hives walnut Allergy (Verified 11/08/24 13:40) Anxiety tree nuts Allergy (Uncoded 11/08/24 13:40) itchy throat, tongue Medication List - Last Reconciled 11/08/24 by Ck Landry PA-C albuterol sulfate 0.63 mg (3 mL) inhalation Q4-6H PRN albuterol sulfate 90 mcg/actuation inhalation buspirone 15 mg PO BEDTIME cholecalciferol (vitamin D3) 50 mcg PO DAILY methylphenidate HCl ER 18 mg PO QAM HPI HPI Tel-MRI Review,right knee: Details: 24-year-old returns for a telehealth MRI review of right knee. The patient states they are doing well. They do suffer from chronic pain and feels as though the symptoms are currently dealing with are from their chronic pain. No new injuries, no new symptoms with activity. COUNTS INCLUDE 234 BEDS AT THE [facility] Medical History Seizures Eating disorder Asthma Insomnia Surgical History History of wisdom tooth extraction Family History Mother Heart problem Diabetes Mental health disorder Father Diabetes Mental health disorder Family/Other Substance use disorder Social History Housing: Apartment Alcohol intake: current Alcohol intake frequency: holidays/special occasions only Patient Tobacco Use Status: Never used Tobacco e-Cigarette/Vaping Use: Never Used Second Hand Smoke Exposure: No Substance Use Type: Marijuana service: No Current occupational status: employed 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 Current occupational exposures/hazards: No Cognitive needs: No Hearing needs: No Vision needs: Yes Review of Systems Const All systems reviewed & are unremarkable except as noted in HPI and below Physical Exam Resp Effort & Inspection: normal respiratory effort and able to speak in complete sentences Telehealth Telehealth Telehealth Platform: Telephone Location of provider rendering services: practice address Location of patient: address on file Patient Identification confirmed using: Name, : Yes Telehealth method: voice only Patient verbally consented to treatment: Yes Patient verbally consented to billing insurance company: Yes Patient informed of any privacy concerns related to visit: Yes Minutes spent on Phone/Video with Pt.: 10 Results Reviewed Results Reviewed: Impression: Normal menisci. No cruciate ligament tears. Lateral collateral ligament partial tear versus sprain. No osseous or cartilaginous abnormality. Assessment & Plan Assessment & Plan (1) Chondromalacia, right knee: Code(s): M94.261 - Chondromalacia, right knee Category: Medical Plan Discussed the results of the MRI in detail. We discussed returning to normal activities without limitations as long as they are pain free. In order for physical therapy has been placed for range of motion and quad strengthening. Glute strengthening as well. Patient will follow up if there is any questions or concerns otherwise follow-up as needed. Orders: Orders PT Evaluation and Treatment Today M94.261 - Chondromalacia, right knee Coding Level of Care Code Tele Est Pt Level 3 (90825) Diagnoses Chondromalacia, right knee M94.261
== END 2024-11-08 13:46 | disposition home or self-care (01) ==
LOC: HO.HOS 13:37
PROVIDERS: PCP Internal Medicine; Visit Provider Physician Assistant
DX: M94.261 Chondromalacia, right knee (principal)
CPT/HCPCS: 98012

== ENCOUNTER 2024-12-25 08:50 | Outpatient (REF) | payer OTHER, SELFPAY ==
[2024-12-25 09:00] LABS: MANUAL DIFF FLAG NO
[2024-12-25 09:21] LABS: Basophils Percent Auto 0.5 % (0-2); Eosinophils Absolute Auto 0.1 X10*3/uL (0.0-0.4); Eosinophils Percent Auto 1.5 % (0-4); Hematocrit 40.8 % (37.0-47.0); Hemoglobin 13.2 g/dl (12.0-16.0); Imm Gran Abs Auto 0.02 X10*3/uL (0.00-0.03); Imm Gran Pct Auto 0.3 % (0.0-0.4); Lymphocytes Absolute Auto 2.3 X10*3/uL (1.2-4.9); Lymphocytes Percent Auto 34.7 % (20-40); Mean Corpuscular HGB Conc 32.4 g/dl (31.0-35.0); Mean Corpuscular Hemoglobin 26.6 pg (27.0-33.0); Mean Corpuscular Volume 82.1 fL (80.0-98.0); Mean Platelet Volume 9.7 fL (9.4-12.3); Monocytes Absolute Auto 0.5 X10*3/uL (0.1-1.2); Monocytes Percent Auto 7.2 % (2-11); Neutrophils Absolute Auto 3.7 x10*3/uL (2.0-8.3); Neutrophils Percent Auto 55.8 % (45-73); Platelet Count 286 X10*3/uL (160-400); Red Blood Count 4.97 X10*6/uL (4.20-5.50); Red Cell Distribution Width 13.3 % (11.0-16.0); White Blood Count 6.7 X10*3/uL (4.8-10.8)
[2024-12-25 09:55] LABS: Alanine Aminotransferase 21 U/L (0-31); Albumin Level 4.2 g/dL (3.5-5.0); Alkaline Phosphatase 86 U/L (39-117); Anion Gap 12 (12-20); Aspartate Amino Transferase 20 U/L (5-31); Bilirubin Total 0.2 mg/dL (0.0-1.0); Blood Urea Nitrogen 11 mg/dL (9-16); Calcium 9.4 mg/dL (8.4-10.2); Carbon Dioxide 26 mmol/L (22-29); Chloride 107 mmol/L (96-108); Cholesterol 146 mg/dL (<200); Estimated Glomerular Filt Rate > 60; Glucose Fasting 97 mg/dL (60-99); HDL Cholesterol 45 mg/dL (>40); LDL Cholesterol Calculated 91 mg/dL (<100); Potassium 4.6 mmol/L (3.3-5.1); Sodium 140 mmol/L (135-145); Total Protein 7.7 g/dL (6.5-8.0); Triglycerides 51 mg/dL (<150)
[2024-12-25 10:14] LABS: Thyroid Stimulating Hormone 3.17 uIU/mL (0.32-4.0)
[2024-12-26 16:48] LABS: Gliadin Deamidated IgA Ab <1.0 U/mL; Gliadin Deamidated IgG Ab <1.0 U/mL; Immunoglobulin A 199 mg/dL (47-310); Transglutaminase Ab IgG <1.0 U/mL; Transglutaminase IgA <1.0 U/mL
== END 2024-12-25 08:51 | disposition home or self-care (01) ==
LOC: HO.LAB 08:50
PROVIDERS: PCP Internal Medicine; Visit Provider Internal Medicine
DX: Z00.00 Encounter for general adult medical examination without abnormal findings (principal); K90.41 Non-celiac gluten sensitivity; E66.01 Morbid (severe) obesity due to excess calories
CPT/HCPCS: 36415; 80053; 80061; 82784; 84443; 85025; 86258; 86364

== ENCOUNTER 2025-01-23 08:40 | Outpatient (AMB) | payer OTHER, SELFPAY ==
--- NOTE | 2025-01-23 08:43 | AM.OFFWIN_ITS ---
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, Asthma Intake Note: pt is here for cough, asthma concern and wheezing, at home covid test negative Patient Tobacco Use Status: Never used Tobacco Accompanied by: Self / Same As Patient Allergies hazelnut Allergy (Verified 01/23/25 08:45) Hives walnut Allergy (Verified 01/23/25 08:45) Anxiety tree nuts Allergy (Uncoded 11/08/24 13:40) itchy throat, tongue Do you need a note to return to daycare/school/sports/work: Yes HPI HPI Comments History of Present Illness Details This is a 24-year-old female with a past medical history of asthma and fibromyalgia presenting for evaluation of cold symptoms she has had for the past 3 days. Patient states that on Wednesday she woke up with a scratchy throat and then developed a cough with wheezing. Patient has been using her nebulizer with increased frequency and albuterol inhaler up to 3 times daily. Patient states that she continues to cough and feel short of breath. Patient denies having any fevers, chills, otalgia, headache, sore throat or chest pain. Patient took a COVID test at home which was negative. Patient has been using Mucinex OTC. 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 Current occupational exposures/hazards: No Cognitive needs: No Hearing needs: No Vision needs: Yes Review of Systems Const All systems reviewed & are unremarkable except as noted in HPI and below Denies chills, Denies fatigue, Denies fever(s), Denies headache(s) and Denies snoring Eyes Reports as per HPI ENT Reports as per HPI, Denies otalgia, Denies headache(s), Denies nasal discharge and Reports sore throat (resolved) Card Reports no additional complaints, Denies chest pain and Reports dyspnea Resp Reports no additional complaints, Denies change in phlegm color, Reports chest congestion, Reports cough, Denies hemoptysis, Denies excessive phlegm production, Reports dyspnea, Denies snoring, Denies stridor and Reports wheezing GI Reports no additional complaints Reports no additional complaints Musc Reports no additional complaints Skin/Breast Reports system reviewed and no additional complaints, except as documented Neuro Reports no additional complaints and Denies headache(s) Psych Reports no additional complaints Endo Reports no additional complaints and Denies fatigue Tc/Lymph Reports no additional complaints Aller/Immun Reports no additional complaints and Reports wheezing Physical Exam Vital Signs: Last Vital Signs Temp 98.1 F 01/23/25 08:44 Pulse 81 01/23/25 08:44 BP 112/70 01/23/25 08:44 Pulse Ox 97 01/23/25 08:44 Oxygen Delivery Method Room Air 01/23/25 08:44 BMI result Body Mass Index 40.2 Patient is afebrile. Const General: cooperative, healthy appearing, comfortable, no acute distress, well developed, alert, awake, Physically active and well groomed; No acute distress or tired appearing Nutritional Appearance: overweight Orientation/consciousness: patient oriented x3 Limitations: no limitations HEENT Head: Yes normal to inspection and Yes normocephalic Ears: hearing grossly normal bilaterally, external ears normal, TM's normal bilaterally and EAC's normal General nose exam: Normal external nose present Face and sinus: Yes normal facial exam Mouth: Normal oral and palatal mucosa present and moist mucous membranes Throat: Yes posterior oropharynx normal and No postnasal drainage Eyes General: appearance normal, both eyes and all related structures Neck Lymphatic: no lymphadenopathy noted Resp Effort & Inspection: normal respiratory effort, able to speak in complete sentences, no audible wheezes, no cough, respiratory effort not decreased, not labored, no nasal flaring and not tachypneic Auscultation: wheezes expiratory wheezes and lower bilaterally Cardio Rate: regular rate Rhythm: regular rhythm Skin General skin exam: no rashes or lesions noted Neuro General: patient oriented x3 Psych Appearance: grossly normal Mental Status: mental status grossly normal Insight: Good insight present (Psych) Judgement: Good judgement present (Psych) Assessment & Plan Assessment & Plan (1) Asthma exacerbation: Comment: Lung exam is consistent with expiratory wheezes at the bases bilaterally, no clinical concern for consolidation. Code(s): J45.901 - Unspecified asthma with (acute) exacerbation Qualifiers: Asthma severity: mild Asthma persistence: intermittent Qualified Code(s): J45.21 - Mild intermittent asthma with (acute) exacerbation Plan: Prednisone 40 mg x 5 days. Patient will contact her primary care provider regarding her nebulized albuterol prescription. (2) Acute upper respiratory infection: Code(s): J06.9 - Acute upper respiratory infection, unspecified Plan: Ibuprofen or Tylenol as needed for discomfort, increase clear fluids daily and continue Mucinex as before. Medications: New prednisone 40 mg (2 x 20 mg) PO DAILY 10 tabs 0RF Coding Level of Care Code Est Pt Level 3 (05121) Diagnoses Mild intermittent asthma with exacerbation J45.21 Asthma severity: mild Asthma persistence: intermittent Acute upper respiratory infection J06.9 Time Spent (min) 20
[2025-01-23 08:44] VITALS: BP 112/70; PULSE 81; TEMP 36.7; O2SAT 97; BMI 40.2
== END 2025-01-23 09:33 | disposition home or self-care (01) ==
PROVIDERS: PCP Internal Medicine; Visit Provider Physician Assistant
DX: J45.21 Mild intermittent asthma with (acute) exacerbation (principal); J06.9 Acute upper respiratory infection, unspecified

== ENCOUNTER → 2025-01-23 08:40 | Outpatient (BNVA) | payer OTHER, SELFPAY | PROVIDERS: PCP Internal Medicine | DX: J45.21 Mild intermittent asthma with (acute) exacerbation (principal); J06.9 Acute upper respiratory infection, unspecified | CPT/HCPCS: 99212 ==

== ENCOUNTER 2025-02-14 16:58 | Outpatient (RCR) | payer OTHER, SELFPAY ==
--- NOTE | 2024-12-05 18:07 | MHC.PT.EP ---
[facility] [place] Office [place] Office [place] Office [address] Yuniel Godoy [address] [phone] F: [phone] F: [phone] F: [phone] F: [phone] Physical Therapy Plan of Care Date of Evaluation: 12/05/24 Date of Surgery: n/a Diagnosis: Chondromalacia, right knee Assessment: Pt is a pleasant and motivated 24yo who presents to PT with R knee pain after a fall on 10/24/24. Imaging was negative for fracture. Pt presents to PT with current impairments in pain, decreased ROM, decreased strength, soft tissue restrictions, and impaired gait. They are limited functionally by crouching down, sitting>standing, kneeling, prolonged standing, prolonged walking, and stair navigation. They are a good candidate for skilled PT in order to address current impairments to facilitate return to PLOF. They are recommended to be seen 2x/week for 4 weeks and will be reassessed at that time Frequency and Duration: The patient will be seen 2x/week for 4 weeks Short Term Goals: Pt will be I with HEP to promote self management of symptoms Pt will improve R knee extension strength to at least 4+/5 Fitness Coach Goals: Pt will achieve full ROM and strength all planes of right knee to assist with prolonged standing and walking Pt will ascend/descend 1 flight of stairs with reciprocal pattern independently Pt will demonstrate improvements in function as evidenced by statistically significant improvement in LEFI outcome measure Treatment Plan: Modalities to reduce pain, spasms and effusion. Manual therapy to restore motion and function. Therapeutic exercise to improve strength and flexibility. Neuromuscular re-education for posture and balance. Therapeutic activities to return to functional activities of daily living. Electronically signed by: Saimna Driver, PT, DPT Please sign and return to therapist. Thank you for your referral.
--- NOTE | 2025-04-24 17:50 | MHC.PT.DC ---
[facility] [place] Office [place] Office [place] Office [address] Yuniel Godoy [address] [phone] F: [phone] F: [phone] F: [phone] F: [phone] Physical Therapy Discharge Report Diagnosis: Chondromalacia, right knee Date of Surgery: n/a Date of Evaluation: 12/05/24 Date of Discharge: 04/24/25 Treatments to Date: 10 Cancellations to Date: No Shows to Date: Discharge Status: Improved Function Independent with HEP Discharge Summary: Pt was seen for skilled PT from 12/05/24-02/14/25. Their last attended and scheduled appointment was 02/14/25. They made good progress throughout PT POC and had a decrease in symptoms. They were independent with HEP and were D/C to HEP at last attended appointment Electronically signed by: Samina Driver, PT, DPT Please sign and return to therapist. Thank you for your referral.
== END 2025-04-24 17:49 | disposition home or self-care (01) ==
LOC: HO.PT 16:58
PROVIDERS: PCP Internal Medicine; Visit Provider Physician Assistant
DX: M94.261 Chondromalacia, right knee (principal)
CPT/HCPCS: 97110; 97112; 97162

== ENCOUNTER 2025-07-17 16:14 | Emergency (ER) | payer OTHER, SELFPAY ==
--- NOTE | ~2025-07-17 | CT_ITS ---
CLINICAL HISTORY: headache, neck pain CT Head without contrast. CT angiography head and neck with contrast. 3D Postprocessing. Comparison: None provided Findings: HEAD CT: No intra-axial mass, midline shift, hydrocephalus, or acute hemorrhage. No significant atrophy-like change or white matter disease. There is no sinus or mastoid fluid. The orbits are within normal limits. There is no acute fracture. HEAD AND NECK CTA: Aortic arch and cervical great vessels are patent. Intracranial arteries are patent. No aneurysm, dissection, or occlusion. No abnormal intracranial enhancement. The visualized thyroid gland is unremarkable. No cervical mass or fluid collection. Lung apices clear. No acute fracture. IMPRESSION: 1. Unremarkable head CT. 2. Patent head and neck CTA. This document has been electronically signed by: Sho Card MD on 07/17/2025 19:03:25
[2025-07-17 16:51] VITALS: BP 147/88; PULSE 101; RESP 22; TEMP 36.5; O2SAT 100; BMI 42.5
--- NOTE | 2025-07-17 16:53 | ED.GENADULT ---
HPI - General Adult General Chief complaint: Neuro Symptoms/Deficit Stated complaint: Feeling like is going to pass out Time Seen by Provider: 07/17/25 18:53 Source: patient Mode of arrival: ambulatory Limitations: no limitations History of Present Illness ED Provider: Dr. Mcgraw [facility] narrative: 25-year-old female presented hospital today for evaluation of sudden onset of left face left arm paresthesia. After she was at work and she straightened out her neck. She states she felt a pop in the warm sensation that overcame her. She does complain of intermittent blurry vision as well. She states she does have history of fibromyalgia and POTS. 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 Related Data Home Medications ?Medication ?Instructions ?Recorded ?Confirmed albuterol sulfate 90 mcg/actuation inhalation 04/05/24 11/08/24 aerosol inhaler cholecalciferol (vitamin D3) 50 50 mcg PO DAILY 07/12/24 11/08/24 mcg (2,000 unit) capsule buspirone 10 mg tablet 15 mg PO BEDTIME 09/27/24 11/08/24 methylphenidate HCl 18 mg 18 mg PO QAM 10/30/24 11/08/24 tablet,extended release 24 hr Previous Rx's ?Medication ?Instructions ?Recorded albuterol sulfate 0.63 mg/3 mL 0.63 mg (3 mL) inhalation Q4-6H 05/25/24 solution for nebulization PRN shortness of breath or wheezing #75 mL prednisone 20 mg tablet 40 mg (2 x 20 mg) PO DAILY #10 tabs 01/23/25 Allergies Allergy/AdvReac Type Severity Reaction Status Date / Time hazelnut Allergy Hives Verified 01/23/25 08:45 peanut Allergy Unknown Verified 07/17/25 16:53 walnut Allergy Anxiety Verified 01/23/25 08:45 tree nuts Allergy itchy Uncoded 11/08/24 13:40 throat, tongue Review of Systems Review of Systems: Pertinent review of systems as mentioned in [facility]. All other system otherwise negative. [facility] Past Medical History [facility] Narrative: Medical history as mentioned in HPI Medical History Seizures Eating disorder Asthma Insomnia Surgical History History of wisdom tooth extraction Family History Family History Mother Heart problem Diabetes Mental health disorder Father Diabetes Mental health disorder Family/Other Substance use disorder Social History Social History Housing: Apartment Alcohol intake: current Alcohol intake frequency: holidays/special occasions only Patient Tobacco Use Status: Never used Tobacco Smoked in Last 30 Days: No e-Cigarette/Vaping Use: Never Used Second Hand Smoke Exposure: No Use of substances other than those prescribed or required for medical reasons: No Substance Use Type: Marijuana Advance Directives: No Advance Directives Information Provided: No service: No Current occupational status: employed 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 Current occupational exposures/hazards: No Cognitive needs: No Hearing needs: No Vision needs: Yes Physical Exam ED Exam Exam: General: Pleasant, no distress, interacting appropriately Head: Normacephalic, atraumatic ENT: oral mucosa moist, neck supple, no tracheal deviation Cardiovascular: regular rate, regular rhythm, no murmurs, rubbing, gallops Respiratory: CTAB, no wheeze, rales, rhonchi Extremities: No limb pain or swelling, no calf tenderness, radial pulse intact on the left upper extremity Neurological: Awake and alert, no facial droop noted, some numbness in the left face and left arm, the patient has good strength in upper and lower extremities. Visual becerril intact Skin: Warm and dry Psychiatric: Appropriate mood and thoughts Vital Signs: Vital Signs - 24 hr 07/17/25 16:51 Temperature 97.7 F Pulse Rate 101 H Respiratory Rate 22 H Blood Pressure 147/88 H Pulse Oximetry 100 Oxygen Delivery Method Room Air BMI result Body Mass Index 42.5 Course Course Course Narrative: This is an RME: Additional HPI, ROS, PE not included below will be deferred to primary provider. RME assessment and note performed by: Kisha Freeman PA-C This is a 24 year old female assigned at now nonbinary with a history of SHANNON, ADHD, fibromyalgia, and hypermobility who presents to the ER with complaints of headache, numbness and tingling down her left side of her face, left arm, reports difficulty swallowing and some shortness for breath. She is speaking full sentences under no acute distress. She states that this all happened after adjusting her neck while at work around 1:50PM. NIH score of 0, she is neurologically intact. Plan: Labs, EKG, CT head/CTA Medications Administered Generic Name Dose Route Start Last Admin Trade Name Freq PRN Reason Stop Dose Admin Sodium Chloride 500 mls @ 500 mls/hr 07/17/25 19:15 07/17/25 19:25 Ns IV 07/17/25 20:14 500 mls/hr .Q1H BLANCA Administration Discontinued Medications Generic Name Dose Route Start Last Admin Trade Name Freq PRN Reason Stop Dose Admin Iohexol 100 ml 07/17/25 18:14 07/17/25 18:14 Iohexol 350 Mg/Ml 100 Ml Infus..Btl IV 07/17/25 18:15 70 ml ONCE ONE Administration Medical Decision Making Medical Decision Making [facility] Narrative: 25-year-old female history of fibromyalgia and POTS presented hospital today for sudden onset of left facial numbness and left upper extremity numbness. CTA of the head and neck were obtain. Appears to have pain and vessels on sign of vertebral artery dissection. Patient's symptom is improving. I do not think this is stroke related. This will be a abnormal onset of her symptoms. CBC is unremarkable, patient chemistries unremarkable, does have mild transaminitis likely secondary to fatty liver disease. Patient will be discharged at this time. We will have her follow up with her neurologist for her symptoms Differential Diagnosis Differential Diagnoses: The differential diagnosis associated with the presentation includes CVA, vertebral artery dissection, cervical radiculopathy Lab Data [facility] Lab Attestation statement: I reviewed the patient's lab results. 07/17/25 17:32 07/17/25 17:32 Labs: Lab Results 07/17/25 Range/Units 17:32 WBC 8.2 (4.8-10.8) X10*3/uL RBC 5.18 (4.20-5.50) X10*6/uL Hgb 13.8 (12.0-16.0) g/dl Hct 41.3 (37.0-47.0) % MCV 79.7 L (80.0-98.0) fL MCH 26.6 L (27.0-33.0) pg MCHC 33.4 (31.0-35.0) g/dl RDW 13.3 (11.0-16.0) % Plt Count 313 (160-400) X10*3/uL MPV 9.3 L (9.4-12.3) fL Immature Gran % (Auto) 0.2 (0.0-0.4) % Neut % (Auto) 57.5 (45-73) % Lymph % (Auto) 35.7 (20-40) % [place] % (Auto) 4.6 (2-11) % Eos % (Auto) 1.5 (0-4) % Baso % (Auto) 0.5 (0-2) % Lymph # (Auto) 2.9 (1.2-4.9) X10*3/uL [place] # (Auto) 0.4 (0.1-1.2) X10*3/uL Eos # (Auto) 0.1 (0.0-0.4) X10*3/uL Baso # (Auto) 0.0 (0.0-0.2) X10*3/uL Abs Immat Gran (auto) 0.02 (0.00-0.03) X10*3/uL Absolute Neuts (auto) 4.7 (2.0-8.3) x10*3/uL Absolute Nucleated RBC 0.000 (0.0-0.012) X10*3/uL Nucleated RBC % (auto) 0.0 (0.0-0.2) /100WBC Sodium 139 (135-145) mmol/L Potassium 3.8 (3.3-5.1) mmol/L Chloride 105 (96-108) mmol/L Carbon Dioxide 26 (22-29) mmol/L Anion Gap 12 (12-20) BUN 9 (9-16) mg/dL Creatinine 0.63 (0.5-1.4) mg/dL Estim Creat Clear Calc 161.6 Estimated GFR > 60 Random Glucose 85 (60-115) mg/dL Calcium 9.8 (8.4-10.2) mg/dL Magnesium 1.9 (1.6-2.6) mg/dL Total Bilirubin 0.3 (0.0-1.0) mg/dL Direct Bilirubin 0.1 (0.0-0.5) mg/dL AST 37 H (5-31) U/L ALT 45 H (0-31) U/L Alkaline Phosphatase 88 (39-117) U/L Total Protein 7.9 (6.5-8.0) g/dL Albumin 4.7 (3.5-5.0) g/dL Independent Interpretation I performed an independent interpretation of an: CT Scan Radiology Impression Discussion of test interpretation with radiology: I have reviewed the radiologist's reading. Discharge Plan Discharge Clinical Impression: Arm paresthesia, left Patient Disposition: Home, Self-Care Instructions: Paresthesia (ED) Prescriptions: No Action albuterol sulfate 0.63 mg/3 mL solution for nebulization 0.63 mg inhalation Q4-6H PRN (Reason: shortness of breath or wheezing) Qty: 75 0RF albuterol sulfate 90 mcg/actuation HFA aerosol inhaler inhalation buspirone 10 mg tablet 15 mg PO BEDTIME cholecalciferol (vitamin D3) 50 mcg (2,000 unit) capsule 50 mcg PO DAILY methylphenidate HCl 18 mg tablet extended release 24hr 18 mg PO QAM prednisone 20 mg tablet 40 mg PO DAILY Qty: 10 0RF Print Language: Prydeinig
--- NOTE | 2025-07-17 17:37 | PC.NURSE ---
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
[2025-07-17 17:41] LABS: MANUAL DIFF FLAG NO
[2025-07-17 17:43] LABS: Hematocrit 41.3 % (37.0-47.0); Hemoglobin 13.8 g/dl (12.0-16.0); Imm Gran Abs Auto 0.02 X10*3/uL (0.00-0.03); Imm Gran Pct Auto 0.2 % (0.0-0.4); Lymphocytes Absolute Auto 2.9 X10*3/uL (1.2-4.9); Mean Corpuscular HGB Conc 33.4 g/dl (31.0-35.0); Mean Corpuscular Hemoglobin 26.6 pg (27.0-33.0); Mean Corpuscular Volume 79.7 fL (80.0-98.0); NRBC Abs Auto 0.000 X10*3/uL (0.0-0.012); NRBC Pct Auto 0.0 /100WBC (0.0-0.2); Platelet Count 313 X10*3/uL (160-400); Red Blood Count 5.18 X10*6/uL (4.20-5.50); White Blood Count 8.2 X10*3/uL (4.8-10.8)
[2025-07-17 17:59] LABS: Alanine Aminotransferase 45 U/L (0-31); Albumin Level 4.7 g/dL (3.5-5.0); Alkaline Phosphatase 88 U/L (39-117); Anion Gap 12 (12-20); Aspartate Amino Transferase 37 U/L (5-31); Blood Urea Nitrogen 9 mg/dL (9-16); Calcium 9.8 mg/dL (8.4-10.2); Carbon Dioxide 26 mmol/L (22-29); Chloride 105 mmol/L (96-108); Creatinine Clr Calc Pharmacy 161.6; Estimated Glomerular Filt Rate > 60; Magnesium 1.9 mg/dL (1.6-2.6); Potassium 3.8 mmol/L (3.3-5.1); Sodium 139 mmol/L (135-145); Total Protein 7.9 g/dL (6.5-8.0)
[2025-07-17] MEDS: iohexoL 350 MG/ML 100 ML INFUS..BTL IV (18:14)
--- OUTSIDE RECORDS SUMMARY | 2025-07-17 19:15 | XMS_ITS | Clinical Summary ---
Author Organization [facility] Address [address] [address] Phone Care Team Providers Care Mammography Supervisor Name Role Phone Krissy Longo MD Primary Care Provid er Argelia Lucio MD Unavailable Allergies No known active allergies Medications cloNIDine HCL (CATAPRES) 0.3 MG tablet Take 0.3 mg by mouth daily. Active busPIRone (BUSPAR) 10 MG tablet Take by mouth. 5 mg in am, 15 mg at bedtime 3 Active dexmethylphenida te (FOCALIN XR) 5 MG 24 hr capsule Take 15 mg by mouth every morning. 3 Active cholecalciferol (VITAMIN D3) 5,000 unit capsuleIndicatio ns:Vitamin D deficiency, unspecified Take 1 capsule (5,000 Units total) by mouth daily. 90 capsule 1 3 Active SUMAtriptan (IMITREX) 100 MG tablet TAKE 1 TABLET AT ONSET OF MIGRAINE, MAY REPEAT DOSE IN 4 HOURS IF NEEDED, MAX 2 TABS DAILY 4 Active albuterol (VENTOLIN HFA) 90 mcg/actuation inhalerIndicatio ns:Acute cough Inhale 2 puffs into the lungs every 4 (four) hours as needed for wheezing or shortness of breath/dyspnea . 6.7 g 4 Active Active Problems Problem Noted Date Diagnosed Date Weight gain 08/03/2024 Assessment & Plan (08/03/2024 10:20 AM EDT): Due to unintentional weight gain of 5 pounds since early December 2023 from 242 lbs up to 247 today I requested checkup of thyroid function to make sure that it does not contribute. Portion control. Limit concentrated sugars, saturated fats and calories in the diet. Keep well-hydrated. If unable to achieve expected goal consider formal dietary/nutritional support. Fibromyalgia 01/03/2024 Assessment & Plan (08/03/2024 10:23 AM EDT): Based on the patient's history, physical, and review of the available laboratory and imaging results, I believe that fibromyalgia is the most accurate diagnosis. There is no evidence of an inflammatory arthritis or other connective tissue disease in this case. We discussed the diagnosis of fibromyalgia, its natural history, and treatment. Specifically, we discussed that treatment requires many interventions and recognition that we are often unable to get patients completely pain free. Management of fibromyalgia requires patient engagement to address any underlying depression, anxiety, or sleep disorder. Further, patients are encouraged to engage in regular physical activity. Some studies have suggested that Riley Chi is effective. Other physical activity may including water-based aerobics, walking, biking, gentle yoga, swimming, Pilates etc. In terms of pharmacotherapy, there are many options, including tricyclic antidepressants, duloxetine, gabapentin or pregabalin, and cyclobenzaprine as well as other similar medications to those listed. In this case, the patient might try to focus on nonpharmacologic measures due to marked medication sensitivity/intolerance. I provided her with pamphlet on gabapentin after previous pamphlet on amitriptyline to consider as a possible pharmacologic option at a small dose of 5-10 mg nightly that frequently helps fibromyalgia patients with pain severity and regulating sleep pattern in addition to reducing frequency of migraine headaches. She may benefit from reading self-help book Managing pain before it manages you by Dr. Regina Watson Assessment & Plan (01/04/2024 6:25 PM EST): Based on the patient's history, physical, and review of the available laboratory and imaging results, I believe that fibromyalgia is the most accurate diagnosis. There is no evidence of an inflammatory arthritis or other connective tissue disease in this case. We discussed the diagnosis of fibromyalgia, its natural history, and treatment. Specifically, we discussed that treatment requires many interventions and recognition that we are often unable to get patients completely pain free. Management of fibromyalgia requires patient engagement to address any underlying depression, anxiety, or sleep disorder. Further, patients are encouraged to engage in regular physical activity. Some studies have suggested that Riley Chi is effective. Other physical activity may including water-based aerobics, walking, biking, gentle yoga, swimming, Pilates etc. In terms of pharmacotherapy, there are many options, including tricyclic antidepressants, duloxetine, gabapentin or pregabalin, and cyclobenzaprine as well as other similar medications to those listed. In this case, the patient might try to focus on nonpharmacologic measures due to marked medication sensitivity/intolerance. I provided her with pamphlet on amitriptyline to discuss with her psychotherapist as a possible pharmacologic option at a small dose of 5-10 mg nightly that frequently helps fibromyalgia patients with pain severity and regulating sleep pattern in addition to reducing frequency of migraine headaches. She may benefit from reading self-help book Managing pain before it manages you by Dr. Regina Watson Cold sensitivity 08/26/2023 Assessment & Plan (08/29/2023 8:24 PM EDT): Keep warm, dress in layers. Optimize stress management strategies. Avoid vasoconstrictors in OTC products for cold/flu and sinus. Class 3 severe obesity due t o excess calories without serious comorbidity with body mass index (BMI) of 40.0 to 44.9 in adult 08/26/2023 Assessment & Plan (08/03/2024 10:21 AM EDT): Continue diligent portion control. Limit concentrated sugars, saturated fats and calories in the diet. Keep well-hydrated. If unable to achieve expected goal consider formal dietary/nutritional support. Assessment & Plan (01/04/2024 6:18 PM EST): Congratulations on 1 pound weight loss from 243 lbs in August 2023 down to 242 lbs today and keep it off. Continue diligent portion control. Limit concentrated sugars, saturated fats and calories in the diet. Keep well-hydrated. If unable to achieve expected goal consider formal dietary/nutritional support. Assessment & Plan (08/29/2023 8:22 PM EDT): Congratulations on 15 pounds weight loss from 258 lbs in January 2023 down to 243 lbs today and keep it off. Continue diligent portion control. Limit concentrated sugars, saturated fats and calories in the diet. Keep well-hydrated. If unable to achieve expected goal consider formal dietary/nutritional support. Vitamin D deficiency, unspecified 08/26/2023 Assessment & Plan (08/03/2024 10:20 AM EDT): Continue daily vitamin D 5000 units to bring into optimal range: 40-45 ng/ml. Assessment & Plan (01/04/2024 6:19 PM EST): Continue daily vitamin D 5000 units to bring into optimal range: 40-45 ng/ml. Assessment & Plan (08/29/2023 8:22 PM EDT): Room level requested to make sure that she does not require supplementation to keep it in optimal range: 40-45 ng/ml. Non-celiac gluten sensitivity 02/17/2023 Assessment & Plan (01/03/2024 2:21 PM EST): Remain on gluten-free diet for 3 months to see response. Assessment & Plan (08/26/2023 1:53 PM EDT): Remain on gluten-free diet for 3 months to see response. Assessment & Plan (03/14/2023 11:05 PM EDT): Remain on gluten-free diet for 3 months to see response. Bilateral carpal tunnel syndrome 02/17/2023 Assessment & Plan (03/14/2023 11:05 PM EDT): Avoid prolonged, repetitive hand use. Use wrist splints for prolonged activities. Gentle, regular ROM and stretching exercises-examples with pictures and detailed instructions printed for home use today. May need to consider formal OT if not better or worse local steroid injection. Arthralgia of multiple sites 06/18/2022 Assessment & Plan (08/03/2024 10:22 AM EDT): Joint protection, energy conservation. Gentle, regular exercise routine. Avoid falls, injuries, overuse. Work on getting her body weight closer to ideal range for her height. She may benefit from topical cream such as Arnica, Biofreeze, Aspercreme versus medicated patches such as salonpas, icy hot patch 2-3 times daily and if necessary at bedtime x 3 weeks. She may benefit from warm pool exercise program such as at [facility] versus [facility]. Due to chronic and fluctuating symptoms without significant abnormalities on exam and laboratory data with diffuse presentation in the joints of her upper body, lower body, right side of the body, left side of the body picture is suggestive of fibromyalgia therefore I provided her with pamphlet on it that contains useful websites such as [employer] and literature helpful to self manage including book written by Dr Chidi Marrufo [employer] catastrophe living I have reassured her that based on her history, physical exam in January 2023, August 2023, December 2023 today and available lab work I am not finding signs or symptoms suggestive for major systemic rheumatic diseases at this time. Provided she has no deterioration she asked to return in 3 months Assessment & Plan (01/04/2024 6:17 PM EST): Joint protection, energy conservation. Gentle, regular exercise routine. Avoid falls, injuries, overuse. Work on getting her body weight closer to ideal range for her height. She may benefit from topical cream such as Arnica, Biofreeze, Aspercreme versus medicated patches such as salonpas, icy hot patch 2-3 times daily and if necessary at bedtime x 3 weeks. She may benefit from warm pool exercise program such as at [facility] versus [facility]. Due to chronic and fluctuating symptoms without significant abnormalities on exam and laboratory data with diffuse presentation in the joints of her upper body, lower body, right side of the body, left side of the body picture is suggestive of fibromyalgia therefore I provided her with pamphlet on it that contains useful websites such as [employer] and literature helpful to self manage including book written by Dr Chidi Marrufo [employer] living I have reassured her that based on her history, physical exam in January 2023, August 2023, today and available lab work I am not finding signs or symptoms suggestive for major systemic rheumatic diseases at this time. Provided she has no deterioration she asked to return in 3 months Assessment & Plan (08/29/2023 8:23 PM EDT): Joint protection, energy conservation. Gentle, regular exercise routine. Avoid falls, injuries, overuse. Work on getting her body weight closer to ideal range for her height. She may benefit from topical cream such as Arnica, Biofreeze, Aspercreme versus medicated patches such as salonpas, icy hot patch 2-3 times daily and if necessary at bedtime x 3 weeks. She may benefit from warm pool exercise program such as at [facility] versus [facility]. Due to chronic and fluctuating symptoms without significant abnormalities on exam and laboratory data with diffuse presentation in the joints of her upper body, lower body, right side of the body, left side of the body picture is suggestive of fibromyalgia therefore I provided her with pamphlet on it that contains useful websites such as [employer] and literature helpful to self manage including book written by Dr Chidi Marrufo [employer] living I have reassured her that based on her history, physical exam in January 2023, today and available lab work I am not finding signs or symptoms suggestive for major systemic rheumatic diseases at this time. Provided she has no deterioration and new set of lab work ordered today is reassuring I have asked her to return in 6 months Assessment & Plan (02/17/2023 2:32 PM EDT): Joint protection, energy conservation. Gentle, regular exercise routine. Avoid falls, injuries, overuse. Work on getting her body weight closer to ideal range for her height. She may benefit from topical cream such as Arnica, Biofreeze, Aspercreme versus medicated patches such as salonpas, icy hot patch 2-3 times daily and if necessary at bedtime x 3 weeks. She may benefit from warm pool exercise program such as at [facility] versus [facility] in [place]. Due to chronic and fluctuating symptoms without significant abnormalities on exam and laboratory data with diffuse presentation in the joints of her upper body, lower body, right side of the body, left side of the body picture is suggestive of fibromyalgia therefore I provided her with pamphlet on it that contains useful websites such as [employer] and literature helpful to self manage including book written by Dr Chidi Marrufo [employer] living I have reassured her that based on her history, physical exam today and available lab work I am not finding signs or symptoms suggestive for major systemic rheumatic diseases at this time. Provided she has no deterioration and new set of lab work ordered today is reassuring I have asked her to return in 6 months Assessment & Plan (06/18/2022 11:31 PM EDT): Joint protection, energy conservation. Gentle, regular exercise routine. Avoid falls, injuries, overuse. Work on getting her body weight closer to ideal range for her height. She may benefit from topical cream such as Arnica, Biofreeze, Aspercreme versus medicated patches such as salonpas, icy hot patch 2-3 times daily and if necessary at bedtime x 3 weeks. She may benefit from warm pool exercise program such as at local [facility] versus [facility] in [place]. Due to chronic and fluctuating symptoms without significant abnormalities on exam and laboratory data with diffuse presentation in the joints of her upper body, lower body, right side of the body, left side of the body picture is suggestive of fibromyalgia therefore I provided her with pamphlet on it that contains useful websites such as [employer] and literature helpful to self manage including book written by Dr Chidi Marrufo [employer] catastrophe living I have reassured her that based on her history, physical exam today and available lab work I am not finding signs or symptoms suggestive for major systemic rheumatic diseases at this time. Provided she has no deterioration and new set of lab work ordered today is reassuring I have asked her to return in 6 months Chronic fatigue 06/18/2022 Assessment & Plan (06/18/2022 11:25 PM EDT): Presents as puberty per her report of unclear origin. Balance rest and activity. Sleep hygiene. Proper hydration and well-balanced nutritionally diet. Adhere to age-appropriate screenings and preventive strategies. Keep regular engagement in hobbies/favorite activities. Other insomnia 06/18/2022 Assessment & Plan (08/03/2024 10:21 AM EDT): Principles of sleep hygiene reviewed and strongly encouraged. Listen to relaxation tapes nightly and every time she wakes up x 3-4 months. May need to consider formal sleep specialist consultation and sleep study if not better or worse particularly in view of prolonged sleep deprivation since her teens. Assessment & Plan (06/18/2022 11:21 PM EDT): Principles of sleep hygiene reviewed and strongly encouraged. Listen to relaxation tapes nightly and every time she wakes up x 3-4 months. May need to consider formal sleep study if not better or worse versus waking up gasping for air. Other headache syndrome 06/18/2022 Assessment & Plan (06/18/2022 11:22 PM EDT): Keep well-hydrated, optimize stress management strategies. Rest, apply cold packs over the forehead, meditate. Keep diary of headaches and modifying factors to look for patterns and detect triggers Raynaud's disease without gangrene 06/18/2022 Assessment & Plan (08/03/2024 10:20 AM EDT): Keep warm, dress in layers. Optimize stress management strategies. Avoid vasoconstrictors in OTC products for cold/flu and sinus. Assessment & Plan (01/03/2024 2:21 PM EST): Keep warm, dress in layers. Optimize stress management strategies. Avoid vasoconstrictors in OTC products for cold/flu and sinus. Assessment & Plan (08/26/2023 1:53 PM EDT): Keep warm, dress in layers. Optimize stress management strategies. Avoid vasoconstrictors in OTC products for cold/flu and sinus. Assessment & Plan (02/17/2023 2:33 PM EDT): Keep warm, dress in layers. Optimize stress management strategies. Avoid vasoconstrictors in OTC products for cold/flu and sinus. Assessment & Plan (06/18/2022 11:19 PM EDT): Keep warm, dress in layers. Optimize stress management strategies. Avoid vasoconstrictors in OTC products for cold/flu and sinus. Sensitivity to sunlight 06/18/2022 Assessment & Plan (06/18/2022 11:24 PM EDT): Continue daily sun protection all year round. Avoid prolonged sun exposure particularly between 10:00 in the morning and 4 PM Encounter for contraceptive management 0 Overview (10/14/2020): Try Loestrin 24 instead of the nuvaring Dizziness and giddiness 04/11/2020 Palpitations 04/11/2020 Abnormal electrocardiogram 04/11/2020 Checking of intrauterine device 09/18/2019 Overview (09/18/2019): Progressively increasing thread length for the past 2 weeks associated with abdominal pain. Assessment & Plan (09/22/2019 12:42 PM EST): Threads appeared to be long. Per patient wishes, we removed the Kyleena. Irregular menses 11/21/2018 Assessment & Plan (11/21/2018 2:01 PM EST): Aware irregular bleeding common with Kyleena. She is more concerned with LLQ pain at present Left lower quadrant pain 11/21/2018 Assessment & Plan (11/21/2018 2:01 PM EST): test negative, no evidence of pelvic infection or threatened IUD expulsion. Gc/chlam sent. Will check u/s as patient and mom concerned about possible cyst and mom has hx of same. If normal findings, will revisit question about whether pt wants IUD removal and whether she wants Nexplanon or other method. Resolved Problems Problem Noted Date Diagnosed Date Resolved Date Class 3 severe obesity due t o excess calories with serious comorbidity and body mass index (BMI) of 45.0 to 49.9 in adult 06/18/2022 3 Assessment & Plan (02/17/2023 2:32 PM EDT): Portion control. Limit concentrated sugars, saturated fats and calories in the diet. Keep well-hydrated. If unable to achieve expected goal consider formal dietary/nutritional support. Assessment & Plan (06/18/2022 11:20 PM EDT): Work on diligent p ortion control. Limit concentrated sugars, saturated fats and calories in the diet. Keep well-hydrated. If unable to achieve expected goal consider formal dietary/nutritional support. Class 3 severe obesity due t o excess calories with body mass index (BMI) of 40.0 to 44.9 in adult 04/11/2020 06/18/2022 Immunizations Immunization Administration Dates Next Due DTaP 09/11/2004, 1,2000,09/08,2000 HPV,quadrivalent 05/18/2013,11/30/2012, 2 Hepatitis B 02/09/2001,2000,2000 Hib,PRP-T 04/27/2001, 1,2000,07/08 INFLUENZA, SPLIT VIRUS, TRIV ALENT W/ PRESERVATIVE IM 11/30/2012,07/04/2009,07/25/2008,09/05 IPV 09/11/2005, 1,2000,07/08 Influenza Quadrivalent Prese rvative Free IM 09/06/2022,08/28/2021,07/12/2020,09/19,02/03/2017,07/29/2015,07/25/2014 ,08/22/2013 Influenza, Unspecified Formulation 09/05/2006 MMR 09/11/2004,07/25/2001 Meningococcal MCV4P 05/12/2018,05/10/2012 Pneumococcal conjugate, PCV 7 04/27/2001 ,2000,2000,07/08 Tdap 04/05/2024,05/10/2012 Varicella 05/30/2008,04/27/2001 Family History Medical History Relation Comments Diabetes Father Diabetes Maternal Grandfather Sleep apnea Maternal Grandfather Heart disease Maternal Grandmother Hyperlipidemia Maternal Grandmother Ovarian cancer Maternal Grandmother pt's father was adopted, several members of his bio family had ovarian or cervical cancer Anxiety disorder Mother Cervical cancer Mother had hysterectom y because of abnormal cells on cervix Depression Mother Diabetes Mother Ovarian cysts Mother hx dermoid cysts Palpitations Mother Relation Status Comments Father Alive Maternal Grandfather Maternal Grandmother Mother Alive Social History Tobacco Use Types Packs/Day Years Used Date Smoking Tobacco: Never Smokeless Tobacco: Never Tobacco Cessation:Counseling Given: Not Answered Alcohol Use Standard Drinks/Week Comments Not Currently 0 (1 standard drink = 0.6 oz pur e alcohol) Education Answer Date Recorded Are you interested in more education? Not on gracie e 02/26/2023 Are you concerned about learning? Not on file 02/26/2023 No 02/26/2023 No 02/26/2023 Digital Access Answer Date Recorded No 03/26/2023 No 03/26/2023 Reliable internet access at home? Not on file 03/26/2023 Device with a working camera? Not on file Comments No Sex and Gender Information Value Date Recorded Sex Assigned at Female 09/08/2022 4:31 PM EST Legal Sex Female 8:47 PM EDT Gender Identity Non-binary 09/08/2022 4:31 PM EST Sexual Orientation Bisexual 09/08/2022 4: 31 PM EST Last Filed Vital Signs Vital Sign Reading Time Taken Comments Blood Pressure 102/72 08/03/2024 9:19 AM EDT Pulse 74 08/03/2024 9:19 AM EDT Temperature 37.1 C (98.7 F) 02/09/2024 4:26 PM EDT Respiratory Rate 18 02/09/2024 4:26 PM EDT Oxygen Saturation 97% 08/03/2024 9:19 AM EDT Inhaled Oxygen Concentration - - Weight 112 kg (247 lb) 08/03/2024 9:19 AM EDT Height 160 cm (5' 3 ) 08/03/2024 9:19 AM EDT Body Mass Index 43.75 08/03/2024 9:19 AM EDT Plan of Treatment Health Maintenance Due Date Last Done Comments DEPRESSION SCREENING 2012 HEPATITIS A VACCINES (1 of 2 - Risk 2-dose series) 2019 INFLUENZA VACCINE (#1) 2025 2, 08/28/2021, 07/12/2020, Additional history exists COVID-19 VACCINE ( season) 2025 11/04/2021, 02/26/2021, 02/05/2021 SMOKING Hx and SMOKELESS TOBACCO SCREENING 08/03/2025 08/03/2024 PAP SMEAR 05/01/2027 05/01/2024 Adult Td,Tdap Booster 04/05/2034 04/05/2024, 012 HIB VACCINES Completed 04/27/2001, 11/03, 2000, Additional history exists PNEUMOCOCCAL VACCINES (0-49 years) Aged Out 04/27/2001, 2000, 2000, Additional history exists No longer eligible based on patient's age to complete this topic HPV VACCINES Completed 05/18/2013, 11/03, 05/10/2012 MENINGOCOCCAL VACCINES (ACWY) Completed 05/12/2018, 05/10/2012 HEPATITIS C SCREENING Completed 08/28/2021 HIV ONE-TIME SCREENING (18-65 YEARS) Completed 08/28/2021 MENINGOCOCCAL VACCINES (B) Aged Out N o longer eligible based on patient's age to complete this topic Medical Devices Not on file Procedures Procedure Name Priority Date/Time Associated Diagnosis Comments PAP TEST Routine 05/01/2024 12:00 AM EDT HEPATITIS C ANTIBODY, QUALITATIVE Routine 08/28/2021 3:39 PM EDT Encounter for screening for infections with a predominantly sexual mode of transmission from Last 3 Months or Most Recently Relevant to Health Maintenance Results * Pap Test (05/01/2024 12:00 AM EDT) 05/01/2024 05/02/2024 8:1 0 AM EDT Narrative SEE NARRATIVE - 05/08/2024 10:43 AM EDT [address] [address] Assistant In Nursing: Cinthya Tabares MD [employer] Cytology Report FINAL DIAGNOSIS A. PAP SMEAR (THIN PREP) CE: SPECIMEN ADEQUACY: Satisfactory for evaluation; transformation zone present. INTERPRETATION: NEGATIVE FOR INTRAEPITHELIAL LESION OR MALIGNANCY. This specimen was analyzed by the automated ThinPrep Imaging System ([employer] and the selected becerril were reviewed by a band cutter. Electronically Signed Out By: RAIMUNDO Ruvalcaba(ASCP) The Pap test is a screening test primarily for squamous cancers and precursors and has associated false-negative and false-positive results. New technologies such as liquid-based preparations may decrease but will not eliminate all false-negative results. Regular sampling and follow-up of unexplained clinical signs and symptoms are recommended to minimize false negative results. PROCEDURES/ADDENDA HPV Testing (Requested) Ordered Date: 05/02/2024 A. PAP SMEAR (THIN PREP) CE: Human Papilloma Virus Test NEGATIVE for high-risk Human Papilloma Virus types 16, 18, 45 and the Other high risk probe set (Includes 31, 33, 35, 39, 51, 52, 56, 58, 59, 66, 68) Note: Testing performed by [employer] HR-HPV analysis. Clinical correlation is advised. This HPV test was performed at [facility], [address] [place] [address]. This test has been FDA approved for both SurePath and ThinPrep cervical cytology specimens. The accuracy and precision of this test for all other specimen sources has been verified in the Cytopathology Laboratory of the [facility] and has not been cleared or approved by the U.S. Food and Drug Administration. Clinical correlation is advised. CLINICAL HISTORY Date of Last Menstrual Period: Not Provided Menstrual History: Unknown Other Clinical Conditions: Screening Pap SPECIMEN SOURCE A: PAP SMEAR (THIN PREP) CE Patient Name: CADY CARTER : 2000 (Age: 24) Sex: F Institution: [facility] Location: [facility] Date of Collection: 05/01/2024 Date of Reported: 05/08/2024 10:43 Results to: Argelia Lucio MD us Argelia Lucio MD CYTOLOGY ORDERABLES Final Resu lt SEE NARRATIVE * Hepatitis C antibody, qualitative (08/28/2021 3:39 PM EDT) HCV NON-REACTIV E NON-REACTI VE [facility] 08/28/2021 3:39 PM EDT 08/28/2021 3:46 PM EDT us Alfredo Maher MD LAB BLOOD ORDERABLES Final Re sult [facility] [address] [place] [address] from Last 3 Months or Most Recently Relevant to Health Maintenance Insurance [employer] [facility] [place] [employer] (Home) [address] [address] [facility] ([facility] [address] [address] (Home) [address] [address] (Home) [address] [address] Care Teams Mammography Supervisor Relationship Specialty Start Date End Date Krissy Longo MD [address] [place] [address] PCP - General Internal Medicine 01/03/24 Argelia Lucio MD [address] [place] [address], [facility] [address] [place] [address] Obstetrics and Gynecology 10/20/24 Additional Source Comments The information contained in this document represents components of the legal health record. It is not the complete legal health record.[facility]
[2025-07-17 19:46] VITALS: BP 144/87; PULSE 81; RESP 16; TEMP 36.4; O2SAT 100
[2025-07-17 19:58] VITALS: BP 144/87; PULSE 81; RESP 16; TEMP 36.4; O2SAT 100
== END 2025-07-17 19:58 | disposition home or self-care (01) ==
PROVIDERS: Physician Assistant Medical; Emergency Provider Student in an Organized Health Care Education/Training Program; PCP Internal Medicine
DX: R20.2 Paresthesia of skin (principal); R20.0 Anesthesia of skin; H53.8 Other visual disturbances; M79.602 Pain in left arm; J45.909 Unspecified asthma, uncomplicated; Z79.899 Other long term (current) drug therapy
CPT/HCPCS: 36415; 70496; 70498; 80048; 80076; 83735; 85025; 99284; 99285; Q9967

== ENCOUNTER → 2025-07-17 17:02 | Outpatient (BNV) | payer OTHER, SELFPAY | PROVIDERS: Emergency Provider Student in an Organized Health Care Education/Training Program; PCP Internal Medicine; Visit Provider Radiology Diagnostic Radiology | DX: R20.2 Paresthesia of skin (principal); R51.9 Headache, unspecified | CPT/HCPCS: 70496; 70498 ==